=== PATIENT | male | born 2000 | race Two or more races ===

== ENCOUNTER 2020-04-18 14:38 | Outpatient (REF) | payer OTHER, SELFPAY ==
[2020-04-18 15:28] LABS: MANUAL DIFF FLAG NO
[2020-04-18 15:31] LABS: Basophils Percent Auto 0.5 % (0-2); Eosinophils Absolute Auto 0.1 X10*3/uL (0.0-0.4); Eosinophils Percent Auto 0.9 % (0-4); Hematocrit 46.3 % (42-52); Hemoglobin 15.1 g/dl (14.0-18.0); Imm Gran Abs Auto 0.01 X10*3/uL (0.00-0.03); Imm Gran Pct Auto 0.2 % (0.0-0.4); Lymphocytes Percent Auto 30.3 % (20-40); Mean Corpuscular HGB Conc 32.6 g/dl (31.0-36.0); Mean Corpuscular Hemoglobin 27.3 pg (27.0-33.0); Mean Corpuscular Volume 83.7 fL (80-98); Mean Platelet Volume 9.1 fL (9.4-12.4); Monocytes Absolute Auto 0.7 X10*3/uL (0.1-1.2); Monocytes Percent Auto 10.8 % (2-11); Neutrophils Absolute Auto 3.7 X10*3/uL (2.0-8.3); Neutrophils Percent Auto 57.3 % (45-73); Platelet Count 266 X10*3/uL (160-400); Red Blood Count 5.53 X10*6/uL (4.60-5.80); Red Cell Distribution Width 13.6 % (11.0-16.0); White Blood Count 6.5 X10*3/uL (4.8-10.8)
[2020-04-18 15:42] LABS: Glucose Urine UA NEG (NEG); Leukocyte Esterase Urine NEG (NEG); Nitrite Urine NEG (NEG); PH 5.5 (5.0-8.0); Specific Gravity - Urine >= 1.030 (1.005-1.025); Urine Blood NEG (NEG); Urine Ketones NEG (NEG); Urine Protein NEG (NEG-TRACE)
[2020-04-18 15:45] LABS: Appearance Urine HAZY; Color Urine YELLOW
[2020-04-18 15:50] LABS: Bacteria Urine TRACE /LPF; Mucus Urine 2+ /LPF; RBC Urine 0 /HPF (0); WBC Urine 0 /HPF (0-4)
[2020-04-18 16:01] LABS: Alanine Aminotransferase 68 U/L (0-40); Albumin Level 4.9 g/dL (3.5-5.0); Alkaline Phosphatase 76 U/L (39-117); Anion Gap 12 (12-20); Aspartate Amino Transferase 33 U/L (5-37); Bilirubin Total 0.5 mg/dL (0.0-1.0); Blood Urea Nitrogen 9 mg/dL (9-16); Calcium 9.5 mg/dL (8.4-10.2); Carbon Dioxide 27 mmol/L (22-29); Chloride 106 mmol/L (96-108); Cholesterol 162 mg/dL; Estimated Glomerular Filt Rate > 60; Glucose Random 80 mg/dL (60-115); HDL Cholesterol 46 mg/dL; LDL Cholesterol Calculated 101 mg/dl; Potassium 4.4 mmol/L (3.3-5.1); Sodium 141 mmol/L (135-145); Total Protein 7.7 g/dL (6.5-8.0); Triglycerides 76 mg/dL
[2020-04-18 16:22] LABS: Free T4 (Free Thyroxine) 0.86 ng/dL (0.71-1.85); Thyroid Stimulating Hormone 1.33 uIU/mL (0.32-4.0)
[2020-04-18 16:34] LABS: Folate 12.1 ng/mL (> or = 4.0); Vitamin B12 301 pg/mL (200-900)
== END 2020-04-18 14:39 | disposition home or self-care (01) ==
LOC: HO.LAB 14:38
PROVIDERS: PCP Internal Medicine; Visit Provider Internal Medicine
DX: K21.9 Gastro-esophageal reflux disease without esophagitis (principal); R35.0 Frequency of micturition; R13.10 Dysphagia, unspecified; E78.00 Pure hypercholesterolemia, unspecified
CPT/HCPCS: 36415; 80053; 80061; 81001; 82607; 82746; 84439; 84443; 85025

== ENCOUNTER 2020-05-06 09:15 | Outpatient (REF) | payer OTHER, SELFPAY ==
--- NOTE | ~2020-05-06 | US_ITS ---
EXAMINATION: US ABDOMEN LIMITED CLINICAL INFORMATION: Abnormal results of liver function studies. COMPARISON: None TECHNIQUE: Real-time imaging of the right upper quadrant abdominal viscera. FINDINGS: PANCREAS: Not well visualized due to bowel gas LIVER: Normal. The liver is normal in size. The liver contour is normal. Parenchymal echogenicity is normal. No focal hepatic lesion. There is no intrahepatic biliary duct dilatation seen. GALLBLADDER: Normal. The gallbladder is physiologically distended without evidence of stones, sludge, polyps, wall thickening or pericholecystic fluid. COMMON BILE DUCT: Normal in caliber measuring 0.3 cm in diameter. RIGHT KIDNEY: Normal. No hydronephrosis. No renal calculi or focal parenchymal lesions. The kidney measures 10.2 cm in maximum dimension. FREE FLUID: None. US/US abdomen limited IMPRESSION: Nonvisualization of the pancreas otherwise unremarkable right upper quadrant ultrasound.
[2020-05-06 10:44] LABS: Alanine Aminotransferase 34 U/L (0-40); Albumin Level 4.6 g/dL (3.5-5.0); Alkaline Phosphatase 65 U/L (39-117); Aspartate Amino Transferase 25 U/L (5-37); Bilirubin Direct 0.3 mg/dL (0.0-0.5); Bilirubin Total 0.9 mg/dL (0.0-1.0); Total Protein 7.2 g/dL (6.5-8.0)
[2020-05-07 08:20] LABS: HBc Num1 0.07 S/CO (0.00-0.79); Hepatitis B Core Antibody Nonreactive (Nonreactive)
[2020-05-07 08:39] LABS: Hepatitis B Surface Antigen Negative (Negative); ~HepC Num1 0.06 S/CO (0.00-0.79); ~Hepatitis C Antibody Nonreactive (Nonreactive)
[2020-05-07 09:30] LABS: HBS Num1 0.69 mIU/mL (0-7.99); HBsAGNum1 0.21 S/CO (0.00-0.99); ~Hepatitis B Surface Antibody NONREACTIVE (Nonreactive)
== END 2020-05-06 09:16 | disposition home or self-care (01) ==
LOC: HO.US 09:15
PROVIDERS: PCP Internal Medicine; Visit Provider Internal Medicine
DX: R94.5 Abnormal results of liver function studies (principal)
CPT/HCPCS: 36415; 76705; 80076; 86704; 86706; 86803; 87340

== ENCOUNTER 2020-06-30 09:43 | Outpatient (REF) | payer OTHER, SELFPAY ==
--- NOTE | ~2020-06-30 | FL_ITS ---
EXAMINATION: FL UPPER GI AIR-CONTRAST WITH BARIUM SWALLOW CLINICAL INFORMATION: Gastroesophageal reflux disease without esophagitis. COMPARISON: None TECHNIQUE: Routine upper GI air-contrast study was performed upright and lying position. In addition barium swallow with thick barium was performed in upright view. FINDINGS: Following oral administration of thick and thin barium in upright view, there is normal propagation of bolus from the oral cavity through the pharynx, esophagus into stomach without any evidence of obstruction, narrowing or stricture. The course, caliber and peristalsis of the esophagus are normal. On placing patient supine and prone lying, there is normal course, caliber and peristalsis of the stomach, duodenal bulb and sweep. The mucosal pattern of the stomach and the duodenum is normal. There is moderate gastroesophageal reflux without hiatal hernia. The soft tissues are normal. FL/FL upper GI w air w Ba Swallow IMPRESSION: Moderate gastroesophageal reflux without hiatal hernia. The rest of upper GI exam is unremarkable.
== END 2020-06-30 09:44 | disposition home or self-care (01) ==
LOC: HO.XRAY 09:43
PROVIDERS: PCP Internal Medicine; Visit Provider Internal Medicine
DX: R13.10 Dysphagia, unspecified (principal); K21.9 Gastro-esophageal reflux disease without esophagitis
CPT/HCPCS: 74246

== ENCOUNTER 2020-07-08 15:34 | Outpatient (REF) | payer OTHER, SELFPAY ==
--- NOTE | ~2020-07-08 | US_ITS ---
EXAMINATION: US PELVIS LIMITED (BLADDER) CLINICAL INFORMATION: Frequency of micturition. COMPARISON: Ultrasound abdomen limited dated 05/06/2020. TECHNIQUE: Real-time imaging of the bladder. FINDINGS: BLADDER: Well distended and normal. Bilateral ureteral jets are demonstrated. Prevoid bladder volume is 354 mL. Postvoid bladder volume is 36 mL. The prostate gland does not appear enlarged. Prostate volume is 6.6 mL. US/US bladder IMPRESSION: Normal bladder ultrasound.
== END 2020-07-08 15:35 | disposition home or self-care (01) ==
LOC: HO.US 15:34
PROVIDERS: PCP Internal Medicine; Visit Provider Internal Medicine
DX: R35.0 Frequency of micturition (principal)
CPT/HCPCS: 76857

== ENCOUNTER 2022-04-06 11:29 | Outpatient (REF) | payer OTHER, SELFPAY ==
[2022-04-06 11:48] LABS: MANUAL DIFF FLAG NO
[2022-04-06 12:38] LABS: Basophils Percent Auto 0.3 % (0-2); Eosinophils Percent Auto 0.4 % (0-4); Hematocrit 47.9 % (42.0-52.0); Hemoglobin 16.3 g/dl (14.0-18.0); Imm Gran Abs Auto 0.02 X10*3/uL (0.00-0.03); Imm Gran Pct Auto 0.3 % (0.0-0.4); Lymphocytes Absolute Auto 1.5 X10*3/uL (1.2-4.9); Lymphocytes Percent Auto 22.6 % (20-40); Mean Corpuscular Hemoglobin 27.5 pg (27.0-33.0); Mean Corpuscular Volume 80.9 fL (80.0-98.0); Mean Platelet Volume 9.5 fL (9.4-12.4); Monocytes Absolute Auto 0.8 X10*3/uL (0.1-1.2); Neutrophils Absolute Auto 4.4 x10*3/uL (2.0-8.3); Neutrophils Percent Auto 65.4 % (45-73); Platelet Count 264 X10*3/uL (160-400); Red Blood Count 5.92 X10*6/uL (4.60-5.80); Red Cell Distribution Width 12.6 % (11.0-16.0); White Blood Count 6.8 X10*3/uL (4.8-10.8)
[2022-04-06 12:43] LABS: Appearance Urine Clear; Color Urine Dark Yellow; Glucose Urine UA Negative (Negative); Leukocyte Esterase Urine Trace (Negative); Nitrite Urine Negative (Negative); Specific Gravity - Urine >= 1.030 (1.005-1.025); UMIC TRIGGER UA YES; Urine Blood Negative (Negative); Urine Ketones 80 mg/dL (Negative); Urine Protein 30 (1+) mg/dL (Neg-Trace)
[2022-04-06 12:46] LABS: Bacteria Urine None Seen (None Seen); RBC Urine 0-2 /HPF (0-2); Squamous Epithelial Cell Urine 0-2 /HPF (0-2); WBC Urine 0-5 /HPF (0-5)
[2022-04-06 13:34] LABS: Alanine Aminotransferase 32 U/L (0-40); Albumin Level 5.1 g/dL (3.5-5.0); Alkaline Phosphatase 69 U/L (39-117); Anion Gap 18 (12-20); Aspartate Amino Transferase 29 U/L (5-37); Bilirubin Total 0.9 mg/dL (0.0-1.0); Blood Urea Nitrogen 14 mg/dL (9-16); Carbon Dioxide 22 mmol/L (22-29); Chloride 103 mmol/L (96-108); Cholesterol 153 mg/dL; Estimated Glomerular Filt Rate > 60; Glucose Random 80 mg/dL (60-115); HDL Cholesterol 31 mg/dL; LDL Cholesterol Calculated 109 mg/dl; Potassium 4.2 mmol/L (3.3-5.1); Sodium 139 mmol/L (135-145); Total Protein 7.7 g/dL (6.5-8.0); Triglycerides 65 mg/dL
[2022-04-06 13:52] LABS: Erythrocyte Sedimentation Rate 2 MM/HR (0-15)
[2022-04-06 14:07] LABS: Folate 13.2 ng/mL (> or = 4.0); Free T4 (Free Thyroxine) 1.28 ng/dL (0.71-1.85); Thyroid Stimulating Hormone 0.74 uIU/mL (0.32-4.0); Vitamin B12 600 pg/mL (200-900)
== END 2022-04-06 11:30 | disposition home or self-care (01) ==
LOC: HO.LAB 11:29
PROVIDERS: PCP Internal Medicine; Visit Provider Internal Medicine
DX: E78.00 Pure hypercholesterolemia, unspecified (principal); R35.0 Frequency of micturition
CPT/HCPCS: 36415; 80053; 80061; 81001; 82607; 82746; 84439; 84443; 85025; 85652

== ENCOUNTER 2022-05-27 13:25 | Outpatient (REF) | payer OTHER, SELFPAY ==
[2022-05-27 14:13] LABS: Appearance Urine Clear; Color Urine Dark Yellow; Glucose Urine UA Negative (Negative); Leukocyte Esterase Urine Negative (Negative); Nitrite Urine Negative (Negative); Specific Gravity - Urine >= 1.030 (1.005-1.025); Urine Blood Negative (Negative); Urine Ketones 15 mg/dL (Negative); Urine Protein Trace mg/dL (Neg-Trace)
[2022-05-27 14:16] LABS: Bacteria Urine None Seen (None Seen); RBC Urine 0-2 /HPF (0-2); Squamous Epithelial Cell Urine 0-2 /HPF (0-2); WBC Urine 0-5 /HPF (0-5)
[2022-05-27 14:26] LABS: Anion Gap 13 (12-20); Blood Urea Nitrogen 11 mg/dL (9-16); Calcium 9.8 mg/dL (8.4-10.2); Carbon Dioxide 24 mmol/L (22-29); Chloride 108 mmol/L (96-108); Estimated Glomerular Filt Rate > 60; Glucose Random 87 mg/dL (60-115); Potassium 4.1 mmol/L (3.3-5.1); Sodium 141 mmol/L (135-145)
[2022-05-28 03:33] LABS: Syphilis Screen Nonreactive (Nonreactive)
[2022-05-28 04:10] LABS: HBc Num1 0.08 S/CO (0.00-0.79); HIV AB/AG Nonreactive (Nonreactive); HIV Num 1 0.07 S/CO (0.00-0.99); Hepatitis B Core Antibody Nonreactive (Nonreactive); Hepatitis B Surface Antigen Negative (Negative); ~HepC Num1 0.06 S/CO (0.00-0.79); ~Hepatitis B Surface Antibody NONREACTIVE (Nonreactive); ~Hepatitis C Antibody Nonreactive (Nonreactive)
== END 2022-05-27 13:26 | disposition home or self-care (01) ==
LOC: HO.LAB 13:25
PROVIDERS: PCP Internal Medicine; Visit Provider Internal Medicine
DX: Z11.4 Encounter for screening for human immunodeficiency virus [HIV] (principal); R79.89 Other specified abnormal findings of blood chemistry; R80.9 Proteinuria, unspecified; Z20.2 Contact with and (suspected) exposure to infections with a predominantly sexual mode of transmission
CPT/HCPCS: 36415; 80048; 81001; 86704; 86706; 86780; 86803; 87340; 87389

== ENCOUNTER 2022-08-13 13:00 | Outpatient (REF) | payer OTHER, SELFPAY ==
[2022-08-13 18:05] LABS: Urine Cytology See Pathology rpt
== END 2022-08-13 13:01 | disposition home or self-care (01) ==
LOC: HO.LNP 13:00
PROVIDERS: PCP Internal Medicine; Visit Provider Nurse Practitioner Family
DX: R35.0 Frequency of micturition (principal); R31.0 Gross hematuria; N39.43 Post-void dribbling; R35.1 Nocturia; R39.14 Feeling of incomplete bladder emptying; R39.15 Urgency of urination; Z79.899 Other long term (current) drug therapy
CPT/HCPCS: 51798; 88112; 99202

== ENCOUNTER 2022-09-14 12:14 | Outpatient (REF) | payer OTHER, SELFPAY ==
[2022-09-14 19:13] LABS: Blood Urea Nitrogen 14 mg/dL (9-16); Estimated Glomerular Filt Rate > 60
== END 2022-09-14 12:15 | disposition home or self-care (01) ==
LOC: HO.LAB 12:14
PROVIDERS: PCP Internal Medicine; Visit Provider Nurse Practitioner Family
DX: R39.15 Urgency of urination (principal)
CPT/HCPCS: 36415; 82565; 84520

== ENCOUNTER 2022-10-12 15:32 | Outpatient (REF) | payer OTHER, SELFPAY ==
--- NOTE | ~2022-10-12 | CT_ITS ---
EXAMINATION: CT ABDOMEN AND PELVIS WITHOUT AND WITH CONTRAST CLINICAL INFORMATION: Gross hematuria COMPARISON: Bladder ultrasound of 07/08/2020 and abdominal ultrasound of 05/06/2020 TECHNIQUE: Noncontrast CT of the abdomen and pelvis is performed followed by split bolus contrast-enhanced images using 85 mL Omnipaque 350 contrast.? Postcontrast imaging is performed during the combined nephrogram and excretion phase. Sagittal and coronal reformatted images were obtained on the technologist's workstation for both the precontrast and postcontrast phases. This CT examination was performed using dose optimization techniques as appropriate, variously including the following: *Automated exposure control *Adjustment of mA and/or kV according to patient size (this includes techniques or standardized protocols for targeted exams where dose is matched to indication/reason for exam; i.e. extremities or head) *Use of iterative reconstruction technique DLP: 862.00 mGy-cm FINDINGS: Ring Sorter demonstrates thoracolumbar scoliosis. LUNG BASES: The visualized lung bases are unremarkable. LIVER, GALLBLADDER, AND BILIARY TREE: The liver is normal in size, shape, and attenuation. No focal hepatic lesion or biliary ductal dilatation is present. The gallbladder is unremarkable with no evidence of radiopaque gallstones, gallbladder wall thickening, or obvious pericholecystic inflammatory changes. PANCREAS: Unremarkable. SPLEEN: Unremarkable. ADRENAL GLANDS: Unremarkable. KIDNEYS AND URETERS: The kidneys are normal in size, shape, and attenuation. No hydronephrosis, hydroureter, or calculi seen. No perinephric stranding. No enhancing renal mass or filling defect. BLADDER: Unremarkable. GASTROINTESTINAL TRACT: The small and large bowel are unremarkable. The appendix is unremarkable. ABDOMINAL WALL: No significant hernia is appreciated. LYMPH NODES: Normal. VASCULAR: Unremarkable. PELVIC VISCERA: Unremarkable. OSSEUS STRUCTURES: Thoracolumbar scoliosis. CT/CT urogram IMPRESSION: Unremarkable CT urogram of the abdomen and pelvis. In particular, no renal, ureteral or bladder calculi, filling defects, enhancing masses.
[2022-10-12] MEDS: iohexoL 350 MG/ML 100 ML INFUS..BTL 85 ML IV (16:14)
== END 2022-10-12 15:33 | disposition home or self-care (01) ==
LOC: HO.CT 15:32
PROVIDERS: PCP Internal Medicine; Visit Provider Nurse Practitioner Family
DX: R31.0 Gross hematuria (principal)
CPT/HCPCS: 74178; Q9967

== ENCOUNTER 2023-03-16 14:22 | Outpatient (AMB) | payer OTHER, SELFPAY ==
--- NOTE | 2023-03-16 14:22 | MHC.PC.OV ---
Intake Visit Reasons: Follow up/[phone] Allergies No Known Allergies Allergy (Verified 03/16/23 14:22) Medication List - Last Reconciled 03/16/23 by Macey Almonte MD tamsulosin 0.4 mg PO BEDTIME 30 days trazodone 50 mg PO BEDTIME PRN Tobacco use date assessed: 03/16/23 Dental Screening Dental Screen Date: 03/16/23 Did you have a dental visit in the last 12 months?: Yes Did you have a dental problem in the last 6 months where you did not have access to dental care?: No Was dental information given to patient?: Patient has dentist HPI Follow up/[phone] HPI Details 23-year-old overweight male with a history of asthma ADHD frequency coming in for follow-up through Telehealth. Last seen in May 2022. With the hematuria patient was seen by Urology started with Flomax and had a CT scan of the abdomen with and without contrast done showing unremarkable with no filling defects or enhancing masses. Patient is here for follow-up through Telehealth. concern on hypoglycemia. patient is worried about HIV also. concern on jock itch had the powder asking for the cream [facility] Medical History (Updated 03/16/23 @ 15:05 by Macey Almonte MD) Frequency of micturition Obesity (BMI 30-39.9) ADHD Insomnia Asthma Surgical History No pertinent past surgical history Family History Father No problems noted. Mother No problems noted. Brother In good health Sister In good health Social History Housing: Other Alcohol intake: never Patient Tobacco Use Status: Never used Tobacco e-Cigarette/Vaping Use: Never Used Second Hand Smoke Exposure: No service: No Current occupational status: unemployed Cognitive needs: No Hearing needs: No Vision needs: Yes Questionnaire PHQ-9 Over the last 2 weeks, how often have you been bothered by any of the following problems? 1. Little interest or pleasure in doing things: not at all 2. Feeling down, depressed, or hopeless: not at all 3. Trouble falling or staying asleep, or sleeping too much: not at all 4. Feeling tired or having little energy: not at all 5. Poor appetite or overeating: not at all 6. Feeling bad about yourself - or that you are a failure or have let yourself or your family down: not at all 7. Trouble concentrating on things, such as reading the newspaper or watching television: not at all 8. Moving or speaking so slowly that other people could have noticed. Or the opposite - being so fidgety or restless that you have been moving around a lot more than usual: not at all 9. Thoughts that you would be better off or of hurting yourself in some way: not at all Total score: 0 Depression Screening Interpretation: Negative Depression Screening Done: Yes Source: Developed by Drs. Sunny Abbott, Keshia Arango, Ottoniel Duran and colleagues, with an educational jasmina from [employer]. Thrive Questionnaire Date Thrive assessed: 03/16/23 I am a: Patient What is your living situation today?: I have a steady place to live Within the past 12 months, did the food you bought not last and you didn't have the money to get more?: Never true Within the past 12 months, did you worry whether your food would run out before you got money to buy more?: Never true Do you have trouble paying for medicines?: No Do you have trouble getting transportation to medical appointments?: No Do you have trouble paying your heating and electricity bill?: No Do you have trouble taking care of your child, family member or friend?: No Do you have trouble with day-to-day activities such as bathing, preparing meals, shopping, managing finances, etc.?: No Are you currently unemployed and looking for a job?: No Are you interested in more education?: No Currently or been in a relationship where the following occur: no concerns reported THRIVE Score: 0 AUDIT C Alcohol Use Questionnaire (AUDIT-C) 1. How often do you have a drink containing alcohol?: Never 3. How often do you have six or more drinks on one occasion?: Never Total Score: 0 TONIO-7 AMB Questionnaire TONIO-7 Date TONIO - 7 assessed: 03/16/23 Feeling nervous, anxious, or on edge: 0 = Not at all Not being able to stop or control worryin = Not at all Worrying too much about different things: 0 = Not at all Trouble relaxin = Not at all Being so restless that it is hard to sit still: 0 = Not at all Becoming easily annoyed or irritable: 0 = Not at all Feeling afraid as if something awful might happen: 0 = Not at all Total TONIO-7 score (0-4 normal; 5-9 mild; 10-14 moderate; 15-21 severe): 0 Source: Developed by Drs. Sunny Abbott, Keshia Arango, Ottoniel Duran and colleagues, with an educational jasmina from [employer]. Physical exam (Primary Care) Tobacco/Smoking Status: Tobacco use Status Tobacco use date assessed 03/16/23 03/16/23 14:25 Patient Tobacco Use Status Never used Tobacco 03/16/23 14:25 e-Cigarette/Vaping Use Never Used 03/16/23 14:25 PHQ-9: PHQ-9 Score PHQ-9: Total score 0 03/16/23 14:25 Depression Screening Interpretation: Negative Thrive Assessment: Date of Thrive Assessment Date Thrive assessed 03/16/23 03/16/23 14:25 Currently or been in a relationship where the following occur: no concerns reported Telehealth Telehealth Location of provider rendering services: practice address Location of patient: address on file Patient Identification confirmed using: Name, : Yes Telehealth method: video (Iphone) Patient verbally consented to treatment: Yes Patient verbally consented to billing insurance company: Yes Patient informed of any privacy concerns related to visit: Yes Minutes spent on Phone/Video with Pt.: 25 Assessment and Plan Assessment & Plan (1) Hematuria, gross: Code(s): R31.0 - Gross hematuria Plan: Workup done by Urology and continue to follow-up with urology. Started on tamsulosin. presently not on any med and will ff up with urology (2) Overweight (BMI 25.0-29.9): Code(s): E66.3 - Overweight Plan: Diet and exercise (3) GERD (gastroesophageal reflux disease): Comment: GI series 06/2020 Code(s): K21.9 - Gastro-esophageal reflux disease without esophagitis Qualifiers: Esophagitis presence: without esophagitis Qualified Code(s): K21.9 - Gastro-esophageal reflux disease without esophagitis Plan: Avoid the foods that causes that usually spicy foods, tomato products, juices, coffee, soda and foods that your sensitive to. After eating do not lie down, allow 3-4 hours before in lie down. And keep the head of bed above 30 degrees to avoid the acid from going up. (4) Asthma: Code(s): J45.909 - Unspecified asthma, uncomplicated Plan: Stable (5) Insomnia: Code(s): G47.00 - Insomnia, unspecified Plan: Trazodone prescription sent. (6) Hypoglycemia: Code(s): E16.2 - Hypoglycemia, unspecified Plan: Discussed about eating better and avoiding fasting Orders: Orders Free T4 (Free Thyroxine) Today K21.9 - Gastro-esophageal reflux disease without esophagitis Thyroid Stimulating Hormone Today K21.9 - Gastro-esophageal reflux disease without esophagitis Hemoglobin A1c Today K21.9 - Gastro-esophageal reflux disease without esophagitis HIV Ab/Ag Today Z20.2 - Contact with and (suspected) exposure to infections with a predominantly sexual mode of transmission Complete Blood Count Auto Diff Today K21.9 - Gastro-esophageal reflux disease without esophagitis Comprehensive Met. Panel Today K21.9 - Gastro-esophageal reflux disease without esophagitis Vitamin B12 and Folate Today K21.9 - Gastro-esophageal reflux disease without esophagitis Lipid Panel Today E78.00 - Pure hypercholesterolemia, unspecified, K21.9 - Gastro-esophageal reflux disease without esophagitis Medications: New clotrimazole 1% 1 appl topical BID 4 weeks 45 grams 0RF B35.6 - Tinea cruris trazodone 50 mg PO BEDTIME PRN 30 tabs 2RF sleep G47.00 - Insomnia, unspecified Discontinued zolpidem Discontinued Reason: Patient Completed Course 5 mg PO BEDTIME PRN 14 tabs 0RF sleep tamsulosin Discontinued Reason: Patient Completed Course 0.4 mg PO BEDTIME 30 days 30 caps 1RF N40.1 - Benign prostatic hyperplasia with lower urinary tract symptoms, R35.1 - Nocturia Coding Level of Care Code Est Pt Level 4 (12267) Diagnoses Hematuria, gross R31.0 Overweight (BMI 25.0-29.9) E66.3 Gastroesophageal reflux disease without esophagitis K21.9 Esophagitis presence: without esophagitis Asthma J45.909 Insomnia G47.00 Hypoglycemia E16.2
== END 2023-03-16 15:14 | disposition home or self-care (01) ==
LOC: HO.HMGH 14:22
PROVIDERS: PCP Internal Medicine; Visit Provider Internal Medicine
DX: R31.0 Gross hematuria (principal); E66.3 Overweight; K21.9 Gastro-esophageal reflux disease without esophagitis; J45.909 Unspecified asthma, uncomplicated; G47.00 Insomnia, unspecified; E16.2 Hypoglycemia, unspecified
CPT/HCPCS: 99214

== ENCOUNTER 2023-03-18 14:11 | Outpatient (AMB) | payer OTHER, SELFPAY ==
--- NOTE | 2023-03-18 14:30 | A.OFFVIS_ITS ---
Intake Intake Visit Reasons: cysto/CT/labs (set) Intake Note: Patient presents today for a CYSTOSCOPY Procedure: Meds: None Allergies to Antibiotic: No Known Allergies Blood Thinner: None Urinalysis test cleared for Cysto Disposable Uro-G Cystoscope Cannula: Lot: [id number] Exp: 06/30/2024 Radio Director Required: No Accompanied by: Self / Same As Patient Allergies No Known Allergies Allergy (Verified 03/18/23 14:31) HPI HPI Comments History of Present Illness Details Dylon is a very pleasant 23-year-old male patient of Dr. Almonte. He has a past medical history of ADHD, asthma, insomnia, and obesity. He was evaluated by DAVID Bailey with complaints urinary dribbling and having had 2 episodes of gross hematuria. He denies smoking cigarettes however reports to smoking recreational marijuana. He denies any known chemical exposure. He reports nocturia 3-4 times per night. He does however endorse to be drinking fluids prior to bed. He otherwise denies incontinence, dysuria, foul-smelling urine, flank pain, fever, and or chills. He does report to being sexually active last about 3-4 months ago with a same sex partner. He has undergone STD workup which have come back negative/WNL. He presents to the office today for office cystoscopy 03/18/23--Cystoscopy findings: prostatic urethra non obstructive, bulbous urethra WNL, no suspicious bladder lesions visualized UA - blood - negative I have discussed CT Urogram results 09/2022- urinary tract WNL Plan - Currently symptoms are resolved. Hematuria w/u negative for abnormality at this time. Follow up prn [facility] Medical History Frequency of micturition Obesity (BMI 30-39.9) ADHD Insomnia Asthma Surgical History No pertinent past surgical history Family History Father No problems noted. Mother No problems noted. Brother In good health Sister In good health Social History Housing: Other Alcohol intake: never Patient Tobacco Use Status: Never used Tobacco e-Cigarette/Vaping Use: Never Used Second Hand Smoke Exposure: No service: No Current occupational status: unemployed Cognitive needs: No Hearing needs: No Vision needs: Yes Review of Systems Const All systems reviewed & are unremarkable except as noted in HPI and below Reports no additional complaints Eyes Reports no additional complaints ENT Reports no additional complaints Card Denies dyspnea Resp Denies cough and Denies dyspnea GI Reports no additional complaints Musc Reports no additional complaints Skin/Breast Denies rash and Denies unusual bruising Neuro Reports no additional complaints Psych Reports no additional complaints Endo Reports no additional complaints David/Lymph Reports no additional complaints Aller/Immun Reports no additional complaints Office Procedures Cystoscopy Consent Discussed risk and benefit or proposed procedure with the patient. Information consent for procedure given to the patient. Discussed technical aspects, risks, benefits and alternatives in full. Addressed all of the patient's questions and concerns regarding the procedure. The patient demonstrated knowledge and understanding. They wish to proceed with this procedure. Preparation The patient was prepped in the usual manner. A rig builder was present and in the room. Genitalia was prepped with betadine solution in a sterile manner. Lidocaine Jelly 2% was placed into the urethra and 16Fr flexible Olympus cystoscope was inserted into the meatus after adequate lubrication. Procedure Time out per protocol performed. Bladder Inspection Bladder Inspection: The bladder was inspected in its entirety with utilization retroflexion d isplaying: Tumor(s): none visualized Trabeculation: N/A Mucosal Erthema: N/A Orifices: normal shape and position Urethra: normal Cystoscopy findings: prostatic urethra non obstructive, bulbous urethra WNL, no suspicious bladder lesions visualized [id number] DISPOSABLE SCOPE URO-G FLEXIBLE SCOPE Procedure code (CPT) selection complete Office Meds lidocaine HCl 2 % mucosal jelly in applicator Performing Provider: Rachael Merchant MD [facility] [place] Administered by: Irma Burgos RN on 03/18/23 14:57 Dose Route Admin Location Dispensed Lot Number Expiration Date NDC Sleeping Car Conductor 10 mL intra-urethral 20 mL naproxen 500 mg tablet Performing Provider: Rachael Merchant MD Performing Location: [facility] [place] [facility] Administered by: Irma Burgos RN on 03/18/23 14:57 Dose Route Admin Location Dispensed Lot Number Expiration Date NDC Sleeping Car Conductor 500 mg PO 1 tab ciprofloxacin HCl 500 mg tablet Performing Provider: Rachael Merchant MD Performing Location: [facility] [place] [facility] Administered by: Irma Burgos RN on 03/18/23 14:57 Dose Route Admin Location Dispensed Lot Number Expiration Date NDC Sleeping Car Conductor 500 mg PO 1 tab Results AMB Urinalysis, Automated UA Leukoctes 15 Sue/uL Last Edit by ISHAN Anton on 03/18/23 14:58 UA Nitrite Negative Last Edit by ISHAN Anton on 03/18/23 14:58 UA Urobilinogen 0.2 mg/dL Last Edit by ISHAN Anton on 03/18/23 14:5 8 UA Protein 15 mg/dL Last Edit by ISHAN Anton on 03/18/23 14:58 1+ Megan Aguilar 03/18/23 14:58 UA pH 6.0 Last Edit by ISHAN Anton on 03/18/23 14:58 UA Blood 0 Osorio/uL Last Edit by ISHAN Anton on 03/18/23 14:58 UA Specific [place] 1.025 Last Edit by ISHAN Anton on 03/18/23 14: 58 UA Ketone Negative Last Edit by ISHAN Anton on 03/18/23 14:58 UA Bilirubin 15 mg/dL Last Edit by ISHAN Anton on 03/18/23 14:58 1+ Megan Aguilar 03/18/23 14:58 UA Glucose 0 mg/dL Last Edit by ISHAN Anton on 03/18/23 14:58 Results Reviewed Results Reviewed: Laboratory Last Values Urine pH (Auto) 6.0 03/18/23 14:55 Specific [place] (Auto) 1.025 03/18/23 14:55 Urine Protein (Auto) 15 mg/dL 03/18/23 14:55 Glucose (UA)(Auto) 0 mg/dL 03/18/23 14:55 Urine Ketones (Auto) Negative 03/18/23 14:55 Urine Blood (Auto) 0 Osorio/uL 03/18/23 14:55 Urine Nitrite (Auto) Negative 03/18/23 14:55 Urine Bilirubin (Auto) 15 mg/dL 03/18/23 14:55 Urine Urobilinogen (Auto) 0.2 mg/dL 03/18/23 14:55 Leukocyte Esterase (Auto) 15 Sue/uL 03/18/23 14:55 Assessment & Plan Assessment & Plan (1) Hematuria, gross: Code(s): R31.0 - Gross hematuria (2) Frequency of micturition: Code(s): R35.0 - Frequency of micturition (3) Urinary dribbling: Code(s): N39.43 - Post-void dribbling Plan Hematuria w/u negative for abnormality at this time. Follow up prn Orders: Orders AMB Cystoscopy 03/18/23 R31.0 - Gross hematuria, R35.0 - Frequency of micturition AMB Urinalysis Automated 03/18/23 Z13.9 - Encounter for screening, unspecified Patient Instructions: The patient had an opportunity to ask questions regarding treatment plan. All questions were answered. Imaging, Laboratory studies and physical exam results were discussed and reviewed in detail. No major barriers to understanding were identified. The patient expressed understanding and agreement with the above treatment plan. The patient is aware they should contact our office by phone for worsening of their current condition or the appearance of new symptoms. Compliance is encouraged with any medications and followup testing that is ordered. It is a privilege to be allowed the opportunity to participate in the urologic care of your patient. If you have any questions or concerns regarding treatment for the above conditions please do not hesitate to contact me. The office telephone contact is [phone]. This note is constructed in part using voice recognition software. While every effort has been made to ensure accuracy peer counselor errors may have been included. Yours sincerely, Rachael Merchant MD Coding Level of Care Code Procedure Only Diagnoses Hematuria, gross R31.0 Frequency of micturition R35.0 Urinary dribbling N39.43 CPT Codes Cystoscopy - CPT: 76990-[id number] ([id number])
== END 2023-03-18 15:40 | disposition home or self-care (01) ==
PROVIDERS: PCP Internal Medicine; Visit Provider Urology
DX: R31.0 Gross hematuria (principal); R35.0 Frequency of micturition; Z13.9 Encounter for screening, unspecified
CPT/HCPCS: 52000

== ENCOUNTER → 2023-03-18 14:11 | Outpatient (BNVA) | payer OTHER, SELFPAY | PROVIDERS: PCP Internal Medicine; Visit Provider Urology | DX: R31.0 Gross hematuria (principal); R35.0 Frequency of micturition; N39.43 Post-void dribbling | CPT/HCPCS: 52000; 81003 ==

== ENCOUNTER 2023-04-12 14:06 | Outpatient (REF) | payer OTHER, SELFPAY ==
[2023-04-12 14:18] LABS: MANUAL DIFF FLAG NO
[2023-04-12 14:33] LABS: Basophils Percent Auto 0.4 % (0-2); Eosinophils Absolute Auto 0.1 X10*3/uL (0.0-0.4); Eosinophils Percent Auto 1.1 % (0-4); Hematocrit 43.6 % (42.0-52.0); Hemoglobin 14.4 g/dl (14.0-18.0); Imm Gran Abs Auto 0.01 X10*3/uL (0.00-0.03); Imm Gran Pct Auto 0.2 % (0.0-0.4); Lymphocytes Absolute Auto 1.5 X10*3/uL (1.2-4.9); Lymphocytes Percent Auto 34.5 % (20-40); Mean Corpuscular Hemoglobin 27.3 pg (27.0-33.0); Mean Corpuscular Volume 82.6 fL (80.0-98.0); Mean Platelet Volume 8.9 fL (9.4-12.4); Monocytes Absolute Auto 0.5 X10*3/uL (0.1-1.2); Neutrophils Absolute Auto 2.4 x10*3/uL (2.0-8.3); Neutrophils Percent Auto 52.8 % (45-73); Platelet Count 250 X10*3/uL (160-400); Red Blood Count 5.28 X10*6/uL (4.60-5.80); Red Cell Distribution Width 13.6 % (11.0-16.0); White Blood Count 4.5 X10*3/uL (4.8-10.8)
[2023-04-12 14:37] LABS: Estimated Average Glucose 88 mg/dL; Hemoglobin A1c % 4.7 % (<6.0)
[2023-04-12 15:02] LABS: Alanine Aminotransferase 19 U/L (0-40); Albumin Level 4.7 g/dL (3.5-5.0); Alkaline Phosphatase 57 U/L (39-117); Anion Gap 11 (12-20); Aspartate Amino Transferase 17 U/L (5-37); Bilirubin Total 0.5 mg/dL (0.0-1.0); Blood Urea Nitrogen 10 mg/dL (9-16); Calcium 9.8 mg/dL (8.4-10.2); Carbon Dioxide 24 mmol/L (22-29); Chloride 107 mmol/L (96-108); Cholesterol 152 mg/dL (<200); Estimated Glomerular Filt Rate > 60; Glucose Random 80 mg/dL (60-115); HDL Cholesterol 44 mg/dL (>40); LDL Cholesterol Calculated 99 mg/dL (<100); Potassium 4.2 mmol/L (3.3-5.1); Sodium 138 mmol/L (135-145); Total Protein 7.6 g/dL (6.5-8.0); Triglycerides 47 mg/dL (<150)
[2023-04-12 15:21] LABS: Thyroid Stimulating Hormone 1.13 uIU/mL (0.32-4.0)
[2023-04-12 15:30] LABS: Vitamin B12 381 pg/mL (200-900)
[2023-04-13 02:37] LABS: HIV AB/AG Nonreactive (Nonreactive); HIV Num 1 0.05 S/CO (0.00-0.99)
== END 2023-04-12 14:07 | disposition home or self-care (01) ==
LOC: HO.LAB 14:06
PROVIDERS: PCP Internal Medicine; Visit Provider Internal Medicine
DX: K21.9 Gastro-esophageal reflux disease without esophagitis (principal); E78.00 Pure hypercholesterolemia, unspecified; Z20.2 Contact with and (suspected) exposure to infections with a predominantly sexual mode of transmission
CPT/HCPCS: 36415; 80053; 80061; 82607; 82746; 83036; 84439; 84443; 85025; 87389

== ENCOUNTER 2023-06-22 11:04 | Outpatient (AMB) | payer OTHER, SELFPAY ==
[2023-06-22 11:11] VITALS: BP 118/72; PULSE 66; O2SAT 98; BMI 27.5
--- NOTE | 2023-06-22 11:11 | MHC.PC.OV ---
Vital Signs 06/22/23 11:11 Height 5 ft 9 in Weight 186 lb BMI 27.5 BP 118/72 Blood Pressure Location Lt brachial Position Standing Pulse 66 Pulse Source Pulse Oximeter Pulse Oximetry (%) 98 Oxygen Delivery Method Room Air Intake Visit Reasons: Insomnia GERD Allergies No Known Allergies Allergy (Verified 06/22/23 11:11) Medication List - Last Reconciled 06/22/23 by Macey Almonte MD clotrimazole 1% 1 appl topical BID 4 weeks trazodone 50 mg PO BEDTIME PRN Tobacco use date assessed: 06/22/23 Dental Screening Dental Screen Date: 06/22/23 Did you have a dental visit in the last 12 months?: Yes Did you have a dental problem in the last 6 months where you did not have access to dental care?: No Was dental information given to patient?: Patient has dentist HPI Insomnia GERD HPI Details 23-year-old overweight male(loss of weight 12 lb) with GERD asthma insomnia last seen in February 2023. Patient had some hematuria and was sent to urology April 2023 cystoscopy workup negative for abnormality. working - April, , [facility] Medical History Frequency of micturition Obesity (BMI 30-39.9) ADHD Insomnia Asthma Surgical History No pertinent past surgical history Family History Father No problems noted. Mother No problems noted. Brother In good health Sister In good health Social History Housing: Other Alcohol intake: never Patient Tobacco Use Status: Never used Tobacco e-Cigarette/Vaping Use: Never Used Second Hand Smoke Exposure: No service: No Current occupational status: unemployed Cognitive needs: No Hearing needs: No Vision needs: Yes Questionnaire PHQ-9 Over the last 2 weeks, how often have you been bothered by any of the following problems? 1. Little interest or pleasure in doing things: not at all 2. Feeling down, depressed, or hopeless: not at all 3. Trouble falling or staying asleep, or sleeping too much: not at all 4. Feeling tired or having little energy: not at all 5. Poor appetite or overeating: not at all 6. Feeling bad about yourself - or that you are a failure or have let yourself or your family down: not at all 7. Trouble concentrating on things, such as reading the newspaper or watching television: not at all 8. Moving or speaking so slowly that other people could have noticed. Or the opposite - being so fidgety or restless that you have been moving around a lot more than usual: not at all 9. Thoughts that you would be better off or of hurting yourself in some way: not at all Total score: 0 Depression Screening Interpretation: Negative Depression Screening Done: Yes Source: Developed by Drs. Sunny Abbott, Keshia Arango, Ottoniel Duran and colleagues, with an educational jasmina from [employer]. Thrive Questionnaire Date Thrive assessed: 03/16/23 AUDIT C Alcohol Use Questionnaire (AUDIT-C) 1. How often do you have a drink containing alcohol?: Never 3. How often do you have six or more drinks on one occasion?: Never Total Score: 0 TONIO-7 AMB Questionnaire TONIO-7 Date TONIO - 7 assessed: 03/16/23 Source: Developed by Drs. Sunny Abbott, Keshia Arango, Ottoniel Duran and colleagues, with an educational jasmina from [employer]. Physical exam (Primary Care) Vital Signs: Last Vital Signs Pulse 66 06/22/23 11:11 BP 118/72 06/22/23 11:11 Pulse Ox 98 06/22/23 11:11 Oxygen Delivery Method Room Air 06/22/23 11:11 BMI result Body Mass Index 27.5 Tobacco/Smoking Status: Tobacco use Status Tobacco use date assessed 06/22/23 06/22/23 11:15 Patient Tobacco Use Status Never used Tobacco 06/22/23 11:15 e-Cigarette/Vaping Use Never Used 06/22/23 11:15 PHQ-9: PHQ-9 Score PHQ-9: Total score 0 06/22/23 11:15 Depression Screening Interpretation: Negative Thrive Assessment: Date of Thrive Assessment Date Thrive assessed 03/16/23 06/22/23 11:15 Const General: alert; No acute distress Eyes Conjunctivae: conjunctivae normal Resp Auscultation: clear to auscultation bilaterally Cardio Rate: regular rate Rhythm: regular rhythm GI Inspection: Yes normal to inspection Extrem General: Yes normal to inspection and No edema Assessment and Plan Assessment & Plan (1) Hematuria, gross: Comment: Workup negative March 2023 Dr. Coy Benton Code(s): R31.0 - Gross hematuria Plan: Patient had a complete workup with cystoscopy CT scan negative benign hematuria (2) Insomnia: Code(s): G47.00 - Insomnia, unspecified Plan: Patient has been placed on trazodone to help with sleep (3) Overweight (BMI 25.0-29.9): Code(s): E66.3 - Overweight Plan: Noted weight loss keep active eat healthy (4) GERD (gastroesophageal reflux disease): Comment: GI series 06/2020 Code(s): K21.9 - Gastro-esophageal reflux disease without esophagitis Qualifiers: Esophagitis presence: without esophagitis Qualified Code(s): K21.9 - Gastro-esophageal reflux disease without esophagitis Plan: Avoid the foods that causes that usually spicy foods, tomato products, juices, coffee, soda and foods that your sensitive to. After eating do not lie down, allow 3-4 hours before in lie down. And keep the head of bed above 30 degrees to avoid the acid from going up. (5) Benign positional vertigo: Code(s): H81.10 - Benign paroxysmal vertigo, unspecified ear Plan: keep well hydrated and call if worsening Medications: Refilled trazodone 50 mg PO BEDTIME PRN 90 tabs 1RF sleep G47.00 - Insomnia, unspecified Coding Level of Care Code Est Pt Level 4 (38294) Diagnoses Hematuria, gross R31.0 Insomnia G47.00 Overweight (BMI 25.0-29.9) E66.3 Gastroesophageal reflux disease without esophagitis K21.9 Esophagitis presence: without esophagitis Benign positional vertigo H81.10
== END 2023-06-22 13:57 | disposition home or self-care (01) ==
PROVIDERS: PCP Internal Medicine; Visit Provider Internal Medicine
DX: G47.00 Insomnia, unspecified (principal); R31.0 Gross hematuria; E66.3 Overweight; K21.9 Gastro-esophageal reflux disease without esophagitis; H81.10 Benign paroxysmal vertigo, unspecified ear
CPT/HCPCS: 99214

== ENCOUNTER 2023-11-23 13:14 | Outpatient (AMB) | payer OTHER, SELFPAY ==
--- NOTE | 2023-11-23 13:18 | MHC.PC.OV ---
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 nausea in am, gerd. [facility] Medical History Frequency of micturition Obesity (BMI 30-39.9) ADHD Insomnia Asthma Surgical History No pertinent past surgical history Family History Father No problems noted. Mother No problems noted. Brother In good health Sister In good health Social History Housing: Other Alcohol intake: never Patient Tobacco Use Status: Never used Tobacco e-Cigarette/Vaping Use: Never Used Second Hand Smoke Exposure: No service: No Current occupational status: unemployed Cognitive needs: No Hearing needs: No Vision needs: Yes Questionnaire PHQ-9 Over the last 2 weeks, how often have you been bothered by any of the following problems? 1. Little interest or pleasure in doing things: not at all 2. Feeling down, depressed, or hopeless: not at all 3. Trouble falling or staying asleep, or sleeping too much: not at all 4. Feeling tired or having little energy: not at all 5. Poor appetite or overeating: not at all 6. Feeling bad about yourself - or that you are a failure or have let yourself or your family down: not at all 7. Trouble concentrating on things, such as reading the newspaper or watching television: not at all 8. Moving or speaking so slowly that other people could have noticed. Or the opposite - being so fidgety or restless that you have been moving around a lot more than usual: not at all 9. Thoughts that you would be better off or of hurting yourself in some way: not at all Total score: 0 Depression Screening Interpretation: Negative Depression Screening Done: Yes Source: Developed by Drs. Sunny Abbott, Keshia Arango, Ottoniel Duran and colleagues, with an educational jasmina from [employer]. Thrive Questionnaire Date Thrive assessed: 11/23/23 I am a: Patient What is your living situation today?: I choose not to answer this question Within the past 12 months, did the food you bought not last and you didn't have the money to get more?: I choose not to answer this question Within the past 12 months, did you worry whether your food would run out before you got money to buy more?: I choose not to answer this question Do you have trouble paying for medicines?: I choose not to answer this question Do you have trouble getting transportation to medical appointments?: I choose not to answer this question Do you have trouble paying your heating and electricity bill?: I choose not to answer this question Do you have trouble taking care of your child, family member or friend?: I choose not to answer this question Do you have trouble with day-to-day activities such as bathing, preparing meals, shopping, managing finances, etc.?: I choose not to answer this question Are you currently unemployed and looking for a job?: I choose not to answer this question Are you interested in more education?: I choose not to answer this question Please select the resources that you would like help with: None Currently or been in a relationship where the following occur: I choose not to answer THRIVE Score: 0 AUDIT C Alcohol Use Questionnaire (AUDIT-C) 1. How often do you have a drink containing alcohol?: Never Total Score: 0 TONIO-7 AMB Questionnaire TONIO-7 Date TONIO - 7 assessed: 11/23/23 Feeling nervous, anxious, or on edge: 0 = Not at all Not being able to stop or control worryin = Not at all Worrying too much about different things: 0 = Not at all Trouble relaxin = Not at all Being so restless that it is hard to sit still: 0 = Not at all Becoming easily annoyed or irritable: 0 = Not at all Feeling afraid as if something awful might happen: 0 = Not at all Total TONIO-7 score (0-4 normal; 5-9 mild; 10-14 moderate; 15-21 severe): 0 Source: Developed by Drs. Sunny Abbott, Keshia Arango, Ottoniel Duran and colleagues, with an educational jasmina from [employer]. Review of Systems Const Denies poor appetite and Denies weakness Eyes Denies no additional complaints ENT Reports Normal hearing present, Denies dizziness, Denies nasal congestion, Denies tinnitus and Denies sore throat Card Denies chest pain, Denies syncope, Denies rapid heart rate and Denies dyspnea Resp Denies cough and Denies dyspnea GI Denies change in stool character, Reports constipation, Denies diarrhea, Denies nausea and Denies vomiting Denies dysuria and Denies urinary frequency Neuro Reports Normal hearing present, Denies confusion, Denies dizziness, Denies syncope and Denies weakness Psych Denies confusion Physical exam (Primary Care) BMI result Body Mass Index 24.1 Tobacco/Smoking Status: Tobacco use Status Tobacco use date assessed 06/22/23 11/23/23 13:21 Patient Tobacco Use Status Never used Tobacco 11/23/23 13:21 e-Cigarette/Vaping Use Never Used 11/23/23 13:21 PHQ-9: PHQ-9 Score PHQ-9: Total score 0 11/23/23 13:21 Depression Screening Interpretation: Negative Thrive Assessment: Date of Thrive Assessment Date Thrive assessed 11/23/23 11/23/23 13:21 Currently or been in a relationship where the following occur: I choose not to answer Const General: No confusion Orientation/consciousness: No confusion HENMT Head: Yes normocephalic Ears: external ears normal and TM's normal bilaterally Face and sinus: Yes normal facial exam Mouth: moist mucous membranes Throat: Yes tonsils normal Eyes Conjunctivae: conjunctivae normal Pupils: Equal, round and reactive pupils present and Pupil accommodation reflex normal Direct Ophthalmoscopy: normal light reflex Neck Neck: No lymphadenopathy Thyroid: Thyroid normal Chest Chest palpation & inspection: normal inspection of the chest Resp Effort & Inspection: normal respiratory effort and no audible wheezes Auscultation: clear to auscultation bilaterally, no crackles, no wheezes and lung sounds not diminished Cardio Rate: regular rate Rhythm: regular rhythm Peripheral pulses: radial pulses present and dorsalis pedis present GI Palpation (GI): no masses Auscultation: normal bowel sounds and normoactive bowel sounds Rectal Exam - Male: Yes deferred Skin General skin exam: no rashes or lesions noted Rashes: no rashes Neuro General: No confusion Cranial nerves: Yes Equal, round and reactive pupils present and Yes Normal hearing present Cognition (Neuro): normal cognition Gait exam (Neuro): Normal gait present Motor exam (neuro): 5/5 motor strength present throughout Deep tendon reflexes (DTR's): Right brachioradialis reflex intensity grade: 2+, Left brachioradialis reflex intensity grade: 2+, Right patellar reflex intensity grade: 2+ and Left patellar reflex intensity grade: 2+ Extrem General: No edema Office Procedures Flu Questionnaire Does the patient have a severe egg allergy?: No Immunizations Fluarix Triv [id number] (PF) 45 mcg (15 mcg x 3)/0.5 mL IM syringe Performing Provider: Macey Almonte MD [facility] Documented (not given) by: ISHAN Zavala on 11/23/23 13:24 Reason Not Given: Patient Refused Coding Level of Care Code Est Pt Prev Care 18-39y(42081) Diagnoses Annual physical exam Z00.00 ADHD F90.9 Gastroesophageal reflux disease without esophagitis K21.9 Esophagitis presence: without esophagitis Asthma J45.909 Constipation K59.00 Hematuria, gross R31.0 Assessment & Plan Assessment & Plan (1) Annual physical exam: Code(s): Z00.00 - Encounter for general adult medical examination without abnormal findings Category: Medical Plan: Patient is advised to eat healthy, keep well hydrated, keep active and have adequate sleep. (2) ADHD: Code(s): F90.9 - Attention-deficit hyperactivity disorder, unspecified type Category: Medical Plan: stable (3) GERD (gastroesophageal reflux disease): Comment: GI series 06/2020 Code(s): K21.9 - Gastro-esophageal reflux disease without esophagitis Category: Medical Qualifiers: Esophagitis presence: without esophagitis Qualified Code(s): K21.9 - Gastro-esophageal reflux disease without esophagitis Plan: Avoid the foods that causes that usually spicy foods, tomato products, juices, coffee, soda and foods that your sensitive to. After eating do not lie down, allow 3-4 hours before in lie down. And keep the head of bed above 30 degrees to avoid the acid from going up. (4) Asthma: Code(s): J45.909 - Unspecified asthma, uncomplicated Category: Medical Plan: Stable (5) Constipation: Code(s): K59.00 - Constipation, unspecified Category: Medical Plan: keep well hydrated, eat more fiber and exercise (6) Hematuria, gross: Comment: Workup negative March 2023 Dr. Coy Benton Code(s): R31.0 - Gross hematuria Category: Medical Plan: benign hematuria Orders: Orders Influenza [id number] Immunization Today Z23 - Encounter for immunization
[2023-11-23 13:19] VITALS: BP 126/80; PULSE 76; O2SAT 97; BMI 24.1
== END 2023-11-23 14:46 | disposition home or self-care (01) ==
PROVIDERS: PCP Internal Medicine; Visit Provider Internal Medicine
DX: Z00.00 Encounter for general adult medical examination without abnormal findings (principal); F90.9 Attention-deficit hyperactivity disorder, unspecified type; K21.9 Gastro-esophageal reflux disease without esophagitis; J45.909 Unspecified asthma, uncomplicated; K59.00 Constipation, unspecified; R31.0 Gross hematuria; Z23 Encounter for immunization

== ENCOUNTER → 2023-11-23 13:14 | Outpatient (BNVA) | payer OTHER, SELFPAY | PROVIDERS: PCP Internal Medicine; Visit Provider Internal Medicine | DX: Z00.01 Encounter for general adult medical examination with abnormal findings (principal); F90.9 Attention-deficit hyperactivity disorder, unspecified type; K21.9 Gastro-esophageal reflux disease without esophagitis; J45.909 Unspecified asthma, uncomplicated; K59.00 Constipation, unspecified; R31.0 Gross hematuria | CPT/HCPCS: 90471; 96127; 99395 ==

== ENCOUNTER 2024-05-07 15:39 | Outpatient (AMB) | payer OTHER, SELFPAY ==
--- NOTE | 2024-05-07 15:53 | MHC.PC.OV ---
Vital Signs 05/07/24 15:57 Height 5 ft 9 in Weight 145 lb BMI 21.4 BP 130/80 Blood Pressure Location Lt brachial Position Sitting Pulse 88 Pulse Source Pulse Oximeter Pulse Oximetry (%) 98 Oxygen Delivery Method Room Air Intake Visit Reasons: follow up Cyber Instructor Required: No Accompanied by: Self / Same As Patient Allergies No Known Allergies Allergy (Verified 05/07/24 15:55) Medication List - Last Reconciled 05/07/24 by Macey Almonte MD aluminum chloride 20% (Drysol) 1 appl topical 2XW PRN trazodone 50 mg PO BEDTIME PRN Tobacco use date assessed: 05/07/24 Dental Screening Dental Screen Date: 05/07/24 Did you have a dental visit in the last 12 months?: No Did you have a dental problem in the last 6 months where you did not have access to dental care?: No Was dental information given to patient?: Patient has dentist HPI follow up HPI Details mom is here, complains of a lot of gas [facility] Medical History Frequency of micturition Obesity (BMI 30-39.9) ADHD Insomnia Asthma Surgical History No pertinent past surgical history Family History Father No problems noted. Mother No problems noted. Brother In good health Sister In good health Social History Housing: Other Alcohol intake: never Patient Tobacco Use Status: Never used Tobacco e-Cigarette/Vaping Use: Never Used Second Hand Smoke Exposure: No service: No Current occupational status: unemployed Cognitive needs: No Hearing needs: No Vision needs: Yes Questionnaire PHQ-9 Over the last 2 weeks, how often have you been bothered by any of the following problems? 1. Little interest or pleasure in doing things: not at all 2. Feeling down, depressed, or hopeless: not at all 3. Trouble falling or staying asleep, or sleeping too much: not at all 4. Feeling tired or having little energy: not at all 5. Poor appetite or overeating: not at all 6. Feeling bad about yourself - or that you are a failure or have let yourself or your family down: not at all 7. Trouble concentrating on things, such as reading the newspaper or watching television: not at all 8. Moving or speaking so slowly that other people could have noticed. Or the opposite - being so fidgety or restless that you have been moving around a lot more than usual: not at all 9. Thoughts that you would be better off or of hurting yourself in some way: not at all Total score: 0 Depression Screening Interpretation: Negative Depression Screening Done: Yes Source: Developed by Drs. Sunny Abbott, Keshia Arango, Ottoniel Duran and colleagues, with an educational jasmina from [employer]. Thrive Questionnaire Date Thrive assessed: 05/07/24 I am a: Patient What is your living situation today?: I choose not to answer this question Within the past 12 months, did the food you bought not last and you didn't have the money to get more?: I choose not to answer this question Within the past 12 months, did you worry whether your food would run out before you got money to buy more?: I choose not to answer this question Do you have trouble paying for medicines?: I choose not to answer this question Do you have trouble getting transportation to medical appointments?: I choose not to answer this question Do you have trouble paying your heating and electricity bill?: I choose not to answer this question Do you have trouble taking care of your child, family member or friend?: I choose not to answer this question Do you have trouble with day-to-day activities such as bathing, preparing meals, shopping, managing finances, etc.?: I choose not to answer this question Are you currently unemployed and looking for a job?: I choose not to answer this question Are you interested in more education?: I choose not to answer this question Please select the resources that you would like help with: None Currently or been in a relationship where the following occur: I choose not to answer THRIVE Score: 0 AUDIT C Alcohol Use Questionnaire (AUDIT-C) 1. How often do you have a drink containing alcohol?: Never Total Score: 0 TONIO-7 AMB Questionnaire TONIO-7 Date TONIO - 7 assessed: 05/07/24 Feeling nervous, anxious, or on edge: 3 = Nearly every day Not being able to stop or control worryin = Not at all Worrying too much about different things: 3 = Nearly every day Trouble relaxin = Several days Being so restless that it is hard to sit still: 1 = Several days Becoming easily annoyed or irritable: 0 = Not at all Feeling afraid as if something awful might happen: 0 = Not at all Total TONIO-7 score (0-4 normal; 5-9 mild; 10-14 moderate; 15-21 severe): 8 Source: Developed by Drs. Sunny Abbott, Keshia Arango, Ottoniel Duran and colleagues, with an educational jasmina from [employer]. Physical exam (Primary Care) Vital Signs: Last Vital Signs Pulse 88 05/07/24 15:57 BP 130/80 05/07/24 15:57 Pulse Ox 98 05/07/24 15:57 Oxygen Delivery Method Room Air 05/07/24 15:57 BMI result Body Mass Index 21.4 Tobacco/Smoking Status: Tobacco use Status Tobacco use date assessed 05/07/24 05/07/24 16:01 Patient Tobacco Use Status Never used Tobacco 05/07/24 16:01 e-Cigarette/Vaping Use Never Used 05/07/24 16:01 PHQ-9: PHQ-9 Score PHQ-9: Total score 0 05/07/24 16:01 Depression Screening Interpretation: Negative Thrive Assessment: Date of Thrive Assessment Date Thrive assessed 05/07/24 05/07/24 16:01 Currently or been in a relationship where the following occur: I choose not to answer Const General: alert; No acute distress Eyes Conjunctivae: conjunctivae normal Resp Auscultation: clear to auscultation bilaterally Cardio Rate: regular rate Rhythm: regular rhythm GI Inspection: Yes normal to inspection Extrem General: Yes normal to inspection and No edema Coding Level of Care Code Est Pt Level 4 (83706) Diagnoses Generalized anxiety disorder F41.1 Gastroesophageal reflux disease without esophagitis K21.9 Esophagitis presence: without esophagitis Asthma J45.909 Abdominal bloating R14.0 Weight loss R63.4 Hyperhidrosis R61 Assessment & Plan Assessment & Plan (1) Generalized anxiety disorder: Code(s): F41.1 - Generalized anxiety disorder Category: Medical Plan: Stable (2) GERD (gastroesophageal reflux disease): Comment: GI series 06/2020 Code(s): K21.9 - Gastro-esophageal reflux disease without esophagitis Category: Medical Qualifiers: Esophagitis presence: without esophagitis Qualified Code(s): K21.9 - Gastro-esophageal reflux disease without esophagitis Plan: Avoid the foods that causes that usually spicy foods, tomato products, juices, coffee, soda and foods that your sensitive to. After eating do not lie down, allow 3-4 hours before in lie down. And keep the head of bed above 30 degrees to avoid the acid from going up. (3) Asthma: Code(s): J45.909 - Unspecified asthma, uncomplicated Category: Medical Plan: Stable (4) Abdominal bloating: Code(s): R14.0 - Abdominal distension (gaseous) Category: Medical (5) Weight loss: Code(s): R63.4 - Abnormal weight loss Category: Medical Plan: eating better now but will get gastro for the bloating (6) Hyperhidrosis: Code(s): R61 - Generalized hyperhidrosis Category: Medical Plan History of Present Illness The patient is a 24-year-old male presenting with intentional weight loss and associated gastrointestinal and dermatological symptoms. He engaged in a restrictive diet, leading to a significant reduction in food intake and subsequent problems, including abdominal discomfort, excess gas, and bowel irregularities. The dietary changes negatively impacted his gastrointestinal health, contributing to feelings of pressure and altered bowel movements. Additionally, the patient deals with excessive sweating and resultant dermatological issues (rashes and itchiness) in sweat-prone areas, exacerbated by anxiety. He continues to experience these symptoms despite using medicated powders and increasing dietary intake to alleviate gastrointestinal distress. His past medical history is significant for asthma, ADHD, GERD, and generalized anxiety disorder. Anxiety contributes notably to symptom exacerbation, particularly sweating. The patient anticipates returning to counseling to address anxiety. Health Maintenance - Last comprehensive bloodwork in March 2023 was unremarkable. - Discussion of dietary adjustments to include more balanced meals. - Plan to resume therapy for anxiety management. Social History - Significant weight loss due to intentional dietary restrictions. - Recent adjustment to include more substantial meals. - No current counseling, but planning to resume. - Hyperhidrosis affecting daily life and necessitating frequent clothing changes. Review of Systems - Gastrointestinal: Reports excessive flatulence, abdominal pressure, and bowel irregularities. - Dermatological: Reports rashes and itchiness. - Neurological/Psychological: Reports ongoing anxiety, planning to resume therapy. Physical Exam - Skin- Observed redness and rash in groin and underarm areas. Results - Labs: Last bloodwork in March 2023 with normal blood count, electrolytes, kidney function, blood sugar, and cholesterol. Plan The management plan involves dietary adjustments focusing on balanced meals and consideration of probiotics to support digestive health. An antifungal powder alongside Drisol has been advised for hyperhidrosis and associated dermatological concerns. The patient will be referred to gastroenterology for further evaluation of gastrointestinal symptoms. Resumption of therapy is encouraged to help manage anxiety, which exacerbates symptoms. Educational guidance on dietary changes is provided. Patient was informed and verbally consented to the use of an ambient scribe for clinic note documentation during this visit. Discussion Notes During the visit, I discussed the necessity of addressing the patient?s gastrointestinal symptoms through dietary modifications and the potential benefits of probiotics. We covered the use of Drisol and antifungal treatments for sweat-related dermatitis. A thorough explanation of gas-producing foods was provided to manage flatulence. Resuming therapy was suggested to aid anxiety management, which impacts sweating and digestion. Consent for a gastroenterology referral was obtained. Recommendations for follow-up and ongoing care were discussed. Patient Instructions - Begin dietary adjustments to include balanced meals. - Use the prescribed antifungal powder on affected areas. - Apply Drisol solution as directed for excessive sweating. - Continue to monitor symptoms and avoid identified gas-producing foods. - Follow through with the referral to gastroenterology. - Resume therapy for anxiety. - Maintain a symptom diary to share at follow-up appointments. Orders: Orders Complete Blood Count Auto Diff Today R61 - Generalized hyperhidrosis Free T4 (Free Thyroxine) Today R61 - Generalized hyperhidrosis Thyroid Stimulating Hormone Today R61 - Generalized hyperhidrosis Ferritin Today R61 - Generalized hyperhidrosis Lipid Panel Today E78.00 - Pure hypercholesterolemia, unspecified, R61 - Generalized hyperhidrosis Comprehensive Met. Panel Today R61 - Generalized hyperhidrosis Vitamin B12 and Folate Today R61 - Generalized hyperhidrosis UA w Microscopic Today R61 - Generalized hyperhidrosis Referrals Gastroenterology Referral R14.0 - Abdominal distension (gaseous) Medications: New aluminum chloride 20% (Drysol) 1 appl topical 2XW PRN 37.5 mL 0RF hyperhidrosis R61 - Generalized hyperhidrosis
[2024-05-07 15:57] VITALS: BP 130/80; PULSE 88; O2SAT 98; BMI 21.4
== END 2024-05-07 17:10 | disposition home or self-care (01) ==
LOC: HO.HMCH 15:40
PROVIDERS: PCP Internal Medicine; Visit Provider Internal Medicine
DX: F41.1 Generalized anxiety disorder (principal); K21.9 Gastro-esophageal reflux disease without esophagitis; J45.909 Unspecified asthma, uncomplicated; R14.0 Abdominal distension (gaseous); R63.4 Abnormal weight loss; R61 Generalized hyperhidrosis

== ENCOUNTER → 2024-05-07 15:39 | Outpatient (BNVA) | payer OTHER, SELFPAY | PROVIDERS: PCP Internal Medicine; Visit Provider Internal Medicine | DX: F41.1 Generalized anxiety disorder (principal); K21.9 Gastro-esophageal reflux disease without esophagitis; J45.909 Unspecified asthma, uncomplicated; R14.0 Abdominal distension (gaseous); R63.4 Abnormal weight loss; R61 Generalized hyperhidrosis | CPT/HCPCS: 99212 ==

== ENCOUNTER 2024-05-29 09:36 | Outpatient (REF) | payer OTHER, SELFPAY ==
--- NOTE | ~2024-05-29 | US_ITS ---
EXAMINATION: US RETROPERITONEUM HISTORY: N39.43 - Post-void dribbling TECHNIQUE: Real-time grayscale ultrasound imaging of the kidneys was performed and images were reviewed. COMPARISON: Comparison is made with the prior ultrasound examination the urinary bladder dated 07/03/[address] urogram dated 10/12/2022. FINDINGS: Right kidney: The right kidney measures 11.1 x 4.4 x 5.9 cm. Renal parenchymal echotexture and thickness are normal. There are no masses. There is no hydronephrosis or renal calculi. Left Kidney: The left kidney measures 11.4 x 6.5 x 5.1 cm. Renal parenchymal echotexture and thickness are normal. There are no masses. There is no hydronephrosis or renal calculi. The urinary bladder is unremarkable. Bilateral ureteral jets are identified. Before voiding, the urinary bladder measured 8.6 x 8.0 x 5.6 cm, for an estimated volume of 202 mL. After voiding, the urinary bladder measured 5.3 x 4.2 x 2.4 cm, for an estimated volume of 28 mL. The prostate is normal in size but demonstrates prominent calcifications. US/US retroperitoneal comp IMPRESSION: 1. The kidneys are unremarkable. 2. The urinary bladder is unremarkable. Post void bladder residual of 28 mL. 3. Prominent prostate calcifications. Electronically signed by: Sunny Hawk MD 05/29/2024 11:41 AM EDT
[2024-05-29 10:07] LABS: MANUAL DIFF FLAG NO
[2024-05-29 10:34] LABS: Appearance Urine Clear; Color Urine Yellow; Glucose Urine UA Negative (Negative); Leukocyte Esterase Urine Negative (Negative); Nitrite Urine Negative (Negative); PH 6.5 (5.0-9.0); Specific Gravity - Urine >= 1.030 (1.005-1.025); Urine Blood Negative (Negative); Urine Ketones Trace mg/dL (Negative); Urine Protein Negative (Neg-Trace)
[2024-05-29 10:34] LABS: Basophils Percent Auto 0.3 % (0-2); Eosinophils Percent Auto 1.1 % (0-4); Hematocrit 42.4 % (42.0-52.0); Hemoglobin 14.3 g/dl (14.0-18.0); Imm Gran Abs Auto 0.01 X10*3/uL (0.00-0.03); Imm Gran Pct Auto 0.3 % (0.0-0.4); Lymphocytes Absolute Auto 1.3 X10*3/uL (1.2-4.9); Mean Corpuscular HGB Conc 33.7 g/dl (31.0-36.0); Mean Corpuscular Hemoglobin 27.4 pg (27.0-33.0); Mean Corpuscular Volume 81.2 fL (80.0-98.0); Mean Platelet Volume 8.4 fL (9.4-12.4); Monocytes Absolute Auto 0.5 X10*3/uL (0.1-1.2); Monocytes Percent Auto 14.2 % (2-11); Neutrophils Absolute Auto 1.8 x10*3/uL (2.0-8.3); Neutrophils Percent Auto 49.1 % (45-73); Platelet Count 221 X10*3/uL (160-400); Red Blood Count 5.22 X10*6/uL (4.60-5.80); Red Cell Distribution Width 13.6 % (11.0-16.0); White Blood Count 3.7 X10*3/uL (4.8-10.8)
[2024-05-29 10:37] LABS: Bacteria Urine None Seen (None Seen); Hyaline Casts Urine 0-2 /LPF (0-2); RBC Urine 0-2 /HPF (0-2); Squamous Epithelial Cell Urine 0-2 /HPF (0-2); WBC Urine 0-5 /HPF (0-5)
[2024-05-29 11:39] LABS: Folate 12.1 ng/mL (> or = 4.0); Vitamin B12 357 pg/mL (200-900)
[2024-05-29 13:03] LABS: Alanine Aminotransferase 23 U/L (0-40); Albumin Level 4.6 g/dL (3.5-5.0); Alkaline Phosphatase 49 U/L (39-117); Anion Gap 9 (12-20); Aspartate Amino Transferase 23 U/L (5-37); Bilirubin Total 0.7 mg/dL (0.0-1.0); Blood Urea Nitrogen 16 mg/dL (9-16); Calcium 9.6 mg/dL (8.4-10.2); Carbon Dioxide 26 mmol/L (22-29); Chloride 108 mmol/L (96-108); Cholesterol 142 mg/dL (<200); Estimated Glomerular Filt Rate > 60; Glucose Random 80 mg/dL (60-115); HDL Cholesterol 59 mg/dL (>40); LDL Cholesterol Calculated 76 mg/dL (<100); Potassium 4.4 mmol/L (3.3-5.1); Sodium 139 mmol/L (135-145); Total Protein 7.1 g/dL (6.5-8.0); Triglycerides 35 mg/dL (<150)
[2024-05-29 13:19] LABS: Ferritin 179 ng/mL (20-250); Thyroid Stimulating Hormone 1.53 uIU/mL (0.32-4.0)
== END 2024-05-29 09:37 | disposition home or self-care (01) ==
LOC: HO.HMGCX 09:36
PROVIDERS: Absent Provider Internal Medicine; PCP Internal Medicine; Visit Provider Nurse Practitioner Family
DX: N39.43 Post-void dribbling (principal); R35.0 Frequency of micturition; R39.89 Other symptoms and signs involving the genitourinary system; R61 Generalized hyperhidrosis; E78.00 Pure hypercholesterolemia, unspecified
CPT/HCPCS: 36415; 76770; 80053; 80061; 81001; 82607; 82728; 82746; 84439; 84443; 85025; 87086

== ENCOUNTER → 2024-05-29 11:08 | Outpatient (BNV) | payer OTHER, SELFPAY | PROVIDERS: Absent Provider Internal Medicine; PCP Internal Medicine; Visit Provider Radiology Diagnostic Radiology | DX: N42.0 Calculus of prostate (principal); R39.14 Feeling of incomplete bladder emptying | CPT/HCPCS: 76770 ==

== ENCOUNTER 2024-06-05 09:49 | Outpatient (AMB) | payer OTHER, SELFPAY ==
--- NOTE | 2024-06-05 09:51 | MHC.OFFVIS ---
Intake Visit Reasons: follow up bladder pain Intake Note: Patient presents today for bladder pain, frequency, and incontinence Urology Medications: none Blood Thinner: none PVR: 66ml's Control Center Operator Required: No Accompanied by: Self / Same As Patient Allergies No Known Allergies Allergy (Verified 06/05/24 09:52) HPI Comments Details: Dylon is a very pleasant 24-year-old male patient of Dr. Almonte who was accompanied by his step mom Taylor at today's office visit He has a past medical history of ADHD, asthma, and insomnia. He presents to the office today for follow-up of his ongoing lower urinary tract symptoms. In discussion with the patient today he reports he continues with episodes of urinary urgency, urinary frequency, and urge incontinence. Of note, during last office visit 03/16 patient underwent an office cystoscopy with Dr. Coy Benton that noted Cystoscopy findings: prostatic urethra non obstructive, bulbous urethra WNL, no suspicious bladder lesions visualized. Recent retroperitoneal ultrasound results were reviewed with the patient and his step mom today 06/15 bilateral kidneys with no calculi, lesions, and or hydronephrosis. The urinary bladder is unremarkable. Postvoid bladder volume was approximately 30 mL. The prostate is normal in size but demonstrates prominent calcifications. Patient with a longstanding history of STD workup that has all been within normal limits. He reports he is not currently sexually active however describes an episode of 8-10 years ago when he was engaged with multi partner anal intercourse. He is currently undergoing psychological therapy for this ongoing issue he has been experiencing. We discussed at length potential causes of lower urinary tract symptoms patient is experiencing. LILIANA was performed left-side of the prostate was noted to be boggy suggesting possible inflammation. We discuss treatment of prostatitis. Unable to perform prostate massage in office today as patient was extremely tender upon exam. He otherwise denies hematuria, dysuria, foul smelling urine, changes to urinary stream, flank pain, fever, and or chills. In office urinalysis results reviewed with the patient today. Physical Exam - Genitourinary- Prostate examination revealed tenderness and bogginess on the left side, suggesting inflammation. Results - Diagnostic Imaging: - Recent ultrasound indicates calcifications in the prostate. Plan Initiate treatment for suspected prostatitis with Bactrim to be taken twice daily for two weeks, prednisone daily for five days to target inflammation, and Mobic daily for 30 days as an anti-inflammatory. The patient's prostate examination suggested inflammation consistent with prostatitis, guiding this treatment plan. I highlighted the importance of lifestyle modifications to avoid factors stimulating the prostate and dietary changes to reduce urinary symptoms. Further diagnostic evaluation, such as prostatic fluid analysis, may be considered if significant improvement is not observed. Informed consent was obtained post-discussion of treatment risks and benefits. Patient was informed and verbally consented to the use of an ambient scribe for clinic note documentation during this visit. Discussion Notes I discussed with the patient the probable diagnosis of chronic prostatitis based on exam findings and proposed treatment options. Benefits, risks, and potential side effects of prescribed medications such as Bactrim, prednisone, and Mobic were outlined. The possibility of further prostatic evaluation was mentioned should symptoms persist. Patient education focused on lifestyle changes and avoidance of triggering factors. I emphasized the importance of adhering to medication regimens and discussed the need for follow-up to monitor symptoms and treatment efficacy. Consent for treatment was obtained, acknowledging understanding of the proposed plan. [facility] Medical History Frequency of micturition Obesity (BMI 30-39.9) ADHD Insomnia Asthma Surgical History No pertinent past surgical history Family History Father No problems noted. Mother No problems noted. Brother In good health Sister In good health Social History Housing: Other Alcohol intake: never Patient Tobacco Use Status: Never used Tobacco e-Cigarette/Vaping Use: Never Used Second Hand Smoke Exposure: No service: No Current occupational status: unemployed Cognitive needs: No Hearing needs: No Vision needs: Yes Review of Systems Const All systems reviewed & are unremarkable except as noted in HPI and below Reports as per HPI Eyes Reports no additional complaints ENT Reports no additional complaints Card Reports no additional complaints Resp Reports as per HPI GI Reports no additional complaints Reports as per HPI Musc Reports no additional complaints Neuro Reports as per HPI Endo Reports no additional complaints Physical Exam Const General: cooperative, healthy appearing, comfortable, no acute distress, well developed, alert and awake Orientation/consciousness: patient oriented x3 Limitations: no limitations HEENT Head: Yes normal to inspection, Yes normocephalic and Yes atraumatic Ears: hearing grossly normal bilaterally Eyes General: appearance normal, both eyes and all related structures Neck Neck: Yes normal visual inspection and Yes trachea midline Chest Chest palpation & inspection: normal inspection of the chest Resp Effort & Inspection: normal respiratory effort and able to speak in complete sentences Cardio Rate: regular rate GI Inspection: Yes normal to inspection General: Yes no CVA tenderness Back/Spine/Pelvis Back: no CVA tenderness Skin General skin exam: no rashes or lesions noted Neuro General: patient oriented x3 Extrem General: Yes normal to inspection Psych Appearance: grossly normal and well kempt Mental Status: mental status grossly normal Speech and movement: Normal speech and movement present and Clear speech present Affect: normal affect Attitude: cooperative Thought process: Normal thought process present Thought content: Normal thought content present Insight: Fair insight present (Psych) Judgement: Fair judgement present (Psych) Office Procedures Post Void Residual Post Residual Void Post Void Residual (PVR): 66 [id number] Void Residual by ultrasound Results AMB Urinalysis, Automated UA Leukoctes 0 Sue/uL Last Edit by [facility] on 06/05/24 10:11 UA Nitrite Last Edit by [facility] on 06/05/24 10:11 UA Urobilinogen 0.2 mg/dL Last Edit by [facility] on 06/05/24 10:11 UA Protein 15 mg/dL Last Edit by [facility] on 06/05/24 10:11 UA pH 7.0 Last Edit by [facility] on 06/05/24 10:11 UA Blood 0 Osorio/uL Last Edit by [facility] on 06/05/24 10:11 UA Specific Aptos 1.015 Last Edit by [facility] on 06/05/24 10:11 UA Ketone Last Edit by [facility] on 06/05/24 10:11 UA Bilirubin 0 mg/dL Last Edit by [facility] on 06/05/24 10:11 UA Glucose 0 mg/dL Last Edit by [facility] on 06/05/24 10:11 Results Reviewed Results Reviewed: Laboratory Last Values Urine pH (Auto) 7.0 06/05/24 10:10 Specific Aptos (Auto) 1.015 06/05/24 10:10 Urine Protein (Auto) 15 mg/dL 06/05/24 10:10 Glucose (UA)(Auto) 0 mg/dL 06/05/24 10:10 Urine Blood (Auto) 0 Osorio/uL 06/05/24 10:10 Urine Bilirubin (Auto) 0 mg/dL 06/05/24 10:10 Urine Urobilinogen (Auto) 0.2 mg/dL 06/05/24 10:10 Leukocyte Esterase (Auto) 0 Sue/uL 06/05/24 10:10 Ordering Physician: Lynn Obregon Date of Service: 05/29/24 Procedure(s): US retroperitoneal comp Accession Number(s): [id number] cc: Lynn Obregon; Macey Almonte MD~ EXAMINATION: US RETROPERITONEUM HISTORY: N39.43 - Post-void dribbling TECHNIQUE: Real-time grayscale ultrasound imaging of the kidneys was performed and images were reviewed. COMPARISON: Comparison is made with the prior ultrasound examination the urinary bladder dated 07/03/[address] urogram dated 10/12/2022. FINDINGS: Right kidney: The right kidney measures 11.1 x 4.4 x 5.9 cm. Renal parenchymal echotexture and thickness are normal. There are no masses. There is no hydronephrosis or renal calculi. Left Kidney: The left kidney measures 11.4 x 6.5 x 5.1 cm. Renal parenchymal echotexture and thickness are normal. There are no masses. There is no hydronephrosis or renal calculi. The urinary bladder is unremarkable. Bilateral ureteral jets are identified. Before voiding, the urinary bladder measured 8.6 x 8.0 x 5.6 cm, for an estimated volume of 202 mL. After voiding, the urinary bladder measured 5.3 x 4.2 x 2.4 cm, for an estimated volume of 28 mL. The prostate is normal in size but demonstrates prominent calcifications. US/US retroperitoneal comp IMPRESSION: 1. The kidneys are unremarkable. 2. The urinary bladder is unremarkable. Post void bladder residual of 28 mL. 3. Prominent prostate calcifications. Assessment & Plan Assessment & Plan (1) Lower urinary tract symptoms: Code(s): R39.9 - Unspecified symptoms and signs involving the genitourinary system Category: Medical (2) Prostatitis: Code(s): N41.9 - Inflammatory disease of prostate, unspecified Category: Medical (3) Frequency of micturition: Code(s): R35.0 - Frequency of micturition Category: Medical (4) Urinary urgency: Code(s): R39.15 - Urgency of urination Category: Medical Plan In office urinalysis results reviewed with the patient today; as noted above. PVR 66 mL We discussed at length potential causes of lower urinary tract symptoms patient was experiencing as well as further treatment options and risks and benefits of these treatment options. Recent retroperitoneal ultrasound results were reviewed with the patient and his mom today; as noted above. We discussed prostatitis as well as chronic prostatitis. We discussed bladder triggers/irritants. Start prednisone, Bactrim, and meloxicam as prescribed. Follow-up in 1-3 months with PVR; or sooner with any issues, concerns, and or questions. Orders: Orders AMB Urinalysis Automated Today Z13.9 - Encounter for screening, unspecified AMB Post Void Residual by ultrasound Today N39.43 - Post-void dribbling Medications: New prednisone 20 mg PO DAILY 5 days 5 tabs 0RF N20.0 - Calculus of kidney meloxicam 15 mg PO DAILY 30 days 30 tabs 0RF R10.31 - Right lower quadrant pain, R10.32 - Left lower quadrant pain sulfamethoxazole-trimethoprim 800-160 mg (Bactrim DS) 1 tab PO BID 14 days 28 tabs 0RF N39.0 - Urinary tract infection, site not specified Coding Level of Care Code Est Pt Level 4 (95314) Diagnoses Lower urinary tract symptoms R39.9 Prostatitis N41.9 Frequency of micturition R35.0 Urinary urgency R39.15 CPT Codes Post Residual Void - PVR CPT Code: 78804-Rfzy Void Residual by ultrasound ([id number])
== END 2024-06-05 10:50 | disposition home or self-care (01) ==
PROVIDERS: PCP Internal Medicine; Visit Provider Nurse Practitioner Family
DX: R39.9 Unspecified symptoms and signs involving the genitourinary system (principal); N41.9 Inflammatory disease of prostate, unspecified; R35.0 Frequency of micturition; R39.15 Urgency of urination; Z13.9 Encounter for screening, unspecified
CPT/HCPCS: 99214

== ENCOUNTER → 2024-06-05 09:49 | Outpatient (BNVA) | payer OTHER, SELFPAY | PROVIDERS: PCP Internal Medicine; Visit Provider Nurse Practitioner Family | DX: R39.9 Unspecified symptoms and signs involving the genitourinary system (principal); R35.0 Frequency of micturition; R39.15 Urgency of urination; N41.9 Inflammatory disease of prostate, unspecified | CPT/HCPCS: 51798; 81003; 99212 ==

== ENCOUNTER 2024-07-12 15:09 | Outpatient (AMB) | payer OTHER, SELFPAY ==
--- NOTE | 2024-07-12 15:14 | A.OFFVIS_ITS ---
Intake Visit Reasons: microgen/LILIANA Intake Note: Patient presents today for bladder pain, frequency, and incontinence Urology Medications: none Blood Thinner: none PVR: 0ml's Swimming Pool Maintenance Required: No Accompanied by: Self / Same As Patient Allergies No Known Allergies Allergy (Verified 07/12/24 15:27) Medication List - Last Reconciled 07/12/24 by KRISHNA Cottrell trazodone 50 mg PO BEDTIME PRN HPI Comments Details: Dylon is a very pleasant 24-year-old male patient of Dr. Almonte who was accompanied by his step mom Taylor at today's office visit He has a past medical history of ADHD, asthma, and insomnia. He presents to the office today for follow-up of his ongoing lower urinary tract symptoms. In discussion with the patient today he reports having completed course of treatment for prostatitis. He reports while on medications for prostatitis he had been doing well and lower urinary tract symptoms he had been experiencing significantly improved however shortly after completion of Bactrim, prednisone, and Mobic he started experiencing lower urinary tract symptoms again. We discussed potential for chronic prostatitis. Patient has previously underwent an office cystoscopy 03/[address] Coy Benton that noted Cystoscopy findings: prostatic urethra non obstructive, bulbous urethra WNL, no suspicious bladder lesions visualized. Previous workup has also included a retroperitoneal ultrasound 06/15 noting bilateral kidneys with no calculi, lesions, and or hydronephrosis. The urinary bladder is unremarkable. Postvoid bladder volume was approximately 30 mL. The prostate is normal in size but demonstrates prominent calcifications. Patient with a longstanding history of STD workup that has all been within normal limits. He reports he is not currently sexually active however describes an episode 8-10 years ago when he engaged with multi partner anal intercourse. He is currently undergoing psychological therapy for this ongoing issue he has been experiencing. We discussed at length potential causes of lower urinary tract symptoms patient is experiencing. LILIANA/prostate massage was performed in office will send for microgen for further assessment evaluation. We discussed pelvic floor therapy. He otherwise denies hematuria, dysuria, foul smelling urine, changes to urinary stream, flank pain, fever, and or chills. In office urinalysis results reviewed with the patient today. [facility] Medical History Frequency of micturition Obesity (BMI 30-39.9) ADHD Insomnia Asthma Surgical History No pertinent past surgical history Family History Father No problems noted. Mother No problems noted. Brother In good health Sister In good health Social History Housing: Other Alcohol intake: never Patient Tobacco Use Status: Never used Tobacco e-Cigarette/Vaping Use: Never Used Second Hand Smoke Exposure: No service: No Current occupational status: unemployed Cognitive needs: No Hearing needs: No Vision needs: Yes Review of Systems Const All systems reviewed & are unremarkable except as noted in HPI and below Reports as per HPI Eyes Reports no additional complaints ENT Reports no additional complaints Card Reports no additional complaints Resp Reports as per HPI GI Reports no additional complaints Reports as per HPI Musc Reports no additional complaints Neuro Reports as per HPI Endo Reports no additional complaints Physical Exam Const General: cooperative, healthy appearing, comfortable, no acute distress, well developed, alert and awake Orientation/consciousness: patient oriented x3 Limitations: no limitations HEENT Head: Yes normal to inspection, Yes normocephalic and Yes atraumatic Ears: hearing grossly normal bilaterally Eyes General: appearance normal, both eyes and all related structures Neck Neck: Yes normal visual inspection and Yes trachea midline Chest Chest palpation & inspection: normal inspection of the chest Resp Effort & Inspection: normal respiratory effort and able to speak in complete sentences Cardio Rate: regular rate GI Inspection: Yes normal to inspection General: Yes no CVA tenderness Back/Spine/Pelvis Back: no CVA tenderness Skin General skin exam: no rashes or lesions noted Neuro General: patient oriented x3 Extrem General: Yes normal to inspection Psych Appearance: grossly normal and well kempt Mental Status: mental status grossly normal Speech and movement: Normal speech and movement present and Clear speech present Affect: normal affect Attitude: cooperative Thought process: Normal thought process present Thought content: Normal thought content present Insight: Fair insight present (Psych) Judgement: Fair judgement present (Psych) Office Procedures Post Void Residual Post Residual Void Post Void Residual (PVR): 0 07104-Jhhn Void Residual by ultrasound Results AMB Urinalysis, Automated UA Leukoctes 0 Sue/uL Last Edit by [employer] on 07/12/24 15:34 UA Nitrite Last Edit by [employer] on 07/12/24 15:34 UA Urobilinogen 0.2 mg/dL Last Edit by [employer] on 07/12/24 15:34 UA Protein 0 mg/dL Last Edit by [employer] on 07/12/24 15:34 UA pH 7.0 Last Edit by [employer] on 07/12/24 15:34 UA Blood 0 Osorio/uL Last Edit by [employer] on 07/12/24 15:34 UA Specific [place] 1.005 Last Edit by [employer] on 07/12/24 15:34 UA Ketone Last Edit by [employer] on 07/12/24 15:34 UA Bilirubin 0 mg/dL Last Edit by [employer] on 07/12/24 15:34 UA Glucose 0 mg/dL Last Edit by [employer] on 07/12/24 15:34 Results Reviewed Results Reviewed: Laboratory Last Values Urine pH (Auto) 7.0 07/12/24 15:20 Specific [place] (Auto) 1.005 07/12/24 15:20 Urine Protein (Auto) 0 mg/dL 07/12/24 15:20 Glucose (UA)(Auto) 0 mg/dL 07/12/24 15:20 Urine Blood (Auto) 0 Osorio/uL 07/12/24 15:20 Urine Bilirubin (Auto) 0 mg/dL 07/12/24 15:20 Urine Urobilinogen (Auto) 0.2 mg/dL 07/12/24 15:20 Leukocyte Esterase (Auto) 0 Sue/uL 07/12/24 15:20 Assessment & Plan Assessment & Plan (1) Urinary urgency: Code(s): R39.15 - Urgency of urination Category: Medical (2) Prostatitis: Code(s): N41.9 - Inflammatory disease of prostate, unspecified Category: Medical (3) Lower urinary tract symptoms: Code(s): R39.9 - Unspecified symptoms and signs involving the genitourinary system Category: Medical Plan In office urinalysis results reviewed with the patient today; as noted above. PVR 0 mL. We discussed pelvic floor therapy. We discussed potential causes of lower urinary tract symptoms patient is experiencing as well as further treatment options and risks and benefits of these treatment options. We discussed prostatitis versus chronic prostatitis. Prostate massage was performed in office will send for microgen testing for further assessment evaluation; will await results for potential treatment We discussed bladder triggers/irritants. Follow-up in 1-2 months with PVR; or sooner with any issues, concerns, and or questions. Orders: Orders AMB Urinalysis Automated Today Z13.9 - Encounter for screening, unspecified AMB Post Void Residual by ultrasound Today R39.15 - Urgency of urination Patient Instructions: The patient had an opportunity to ask questions regarding the treatment plan. All questions were answered. Physical exam, labs, and imaging were discussed and reviewed in detail. As well as risks, benefits, and discussion of treatment choices. No major barriers to understanding were identified. The patient expressed understanding and agreement with the above treatment plan. The patient was made aware they should contact our office by phone for worsening of their current condition, the appearance of new symptoms, or with any questions or concerns. Compliance is encouraged with any medications and follow up testing that is ordered. It is a privilege to be allowed the opportunity to participate in? your urological care.? Again, if you have any questions or concerns If you have any questions or concerns please do not hesitate to contact me. The office is [phone]. This note is constructed using voice recognition software. While every effort has been made to ensure accuracy sewage plant operator errors may have been included. Yours sincerely, KRISHNA Cottrell Coding Level of Care Code Est Pt Level 3 (78020) Diagnoses Urinary urgency R39.15 Prostatitis N41.9 Lower urinary tract symptoms R39.9 CPT Codes Post Residual Void - PVR CPT Code: 94171-Pxdr Void Residual by ultrasound ([id number])
== END 2024-07-12 15:52 | disposition home or self-care (01) ==
LOC: HO.HUSH 15:10
PROVIDERS: PCP Internal Medicine; Visit Provider Nurse Practitioner Family
DX: R39.15 Urgency of urination (principal); N41.9 Inflammatory disease of prostate, unspecified; R39.9 Unspecified symptoms and signs involving the genitourinary system; Z13.9 Encounter for screening, unspecified
CPT/HCPCS: 99213

== ENCOUNTER → 2024-07-12 15:09 | Outpatient (BNVA) | payer OTHER, SELFPAY | PROVIDERS: PCP Internal Medicine; Visit Provider Nurse Practitioner Family | DX: K64.9 Unspecified hemorrhoids (principal); K59.00 Constipation, unspecified; K21.9 Gastro-esophageal reflux disease without esophagitis; F90.9 Attention-deficit hyperactivity disorder, unspecified type; J45.909 Unspecified asthma, uncomplicated; R14.0 Abdominal distension (gaseous); N41.9 Inflammatory disease of prostate, unspecified; R39.15 Urgency of urination | CPT/HCPCS: 51798; 81003; 99212 ==

== ENCOUNTER → 2024-07-12 16:14 | Outpatient (AMB) | payer OTHER, SELFPAY ==
[2024-07-12 16:16] VITALS: BP 118/78; PULSE 77; O2SAT 98; BMI 22.8
--- NOTE | 2024-07-12 16:16 | MHC.PC.OV ---
Vital Signs 07/12/24 16:16 Height 5 ft 9 in Weight 154 lb 6 oz BMI 22.8 BP 118/78 Blood Pressure Location Lt brachial Position Sitting Pulse 77 Pulse Source Pulse Oximeter Pulse Oximetry (%) 98 Oxygen Delivery Method Room Air Intake Visit Reasons: Rectal Bleeding Human Services Worker Required: No Accompanied by: Self / Same As Patient Allergies No Known Allergies Allergy (Verified 07/12/24 15:27) Medication List - Last Reconciled 07/12/24 by Macey Almonte MD hydrocortisone 2.5% (Proctosol HC) 1 appl ND BID-QID PRN sennosides-docusate sodium 8.6-50 mg (Senna Plus) 2 tab-caps (2 x 8.6-50 mg) PO BEDTIME trazodone 50 mg PO BEDTIME PRN Tobacco use date assessed: 07/12/24 Dental Screening Dental Screen Date: 07/12/24 Did you have a dental visit in the last 12 months?: No Did you have a dental problem in the last 6 months where you did not have access to dental care?: No Was dental information given to patient?: No HPI Rectal Bleeding HPI Details prostatitis treatment under urology. presently frequency is better. hemorrhoids problems, will be seeing gastro soon though. has bloating sensation - gas. [facility] Medical History Frequency of micturition Obesity (BMI 30-39.9) ADHD Insomnia Asthma Surgical History No pertinent past surgical history Family History Father No problems noted. Mother No problems noted. Brother In good health Sister In good health Social History Housing: Other Alcohol intake: never Patient Tobacco Use Status: Never used Tobacco e-Cigarette/Vaping Use: Never Used Second Hand Smoke Exposure: No service: No Current occupational status: unemployed Cognitive needs: No Hearing needs: No Vision needs: Yes Questionnaire PHQ-9 Over the last 2 weeks, how often have you been bothered by any of the following problems? 1. Little interest or pleasure in doing things: not at all 2. Feeling down, depressed, or hopeless: not at all 3. Trouble falling or staying asleep, or sleeping too much: not at all 4. Feeling tired or having little energy: not at all 5. Poor appetite or overeating: not at all 6. Feeling bad about yourself - or that you are a failure or have let yourself or your family down: not at all 7. Trouble concentrating on things, such as reading the newspaper or watching television: not at all 8. Moving or speaking so slowly that other people could have noticed. Or the opposite - being so fidgety or restless that you have been moving around a lot more than usual: not at all 9. Thoughts that you would be better off or of hurting yourself in some way: not at all Total score: 0 Source: Developed by Drs. Sunny Abbott, Keshia Arango, Ottoniel Duran and colleagues, with an educational jasmina from [employer]. Thrive Questionnaire Date Thrive assessed: 07/12/24 I am a: Patient What is your living situation today?: I choose not to answer this question Within the past 12 months, did the food you bought not last and you didn't have the money to get more?: I choose not to answer this question Within the past 12 months, did you worry whether your food would run out before you got money to buy more?: I choose not to answer this question Do you have trouble paying for medicines?: I choose not to answer this question Do you have trouble getting transportation to medical appointments?: No Do you have trouble paying your heating and electricity bill?: I choose not to answer this question Do you have trouble taking care of your child, family member or friend?: I choose not to answer this question Do you have trouble with day-to-day activities such as bathing, preparing meals, shopping, managing finances, etc.?: No Are you currently unemployed and looking for a job?: I choose not to answer this question Are you interested in more education?: I choose not to answer this question Please select the resources that you would like help with: None Currently or been in a relationship where the following occur: I choose not to answer THRIVE Score: 0 AUDIT C Alcohol Use Questionnaire (AUDIT-C) 1. How often do you have a drink containing alcohol?: Never 3. How often do you have six or more drinks on one occasion?: Never Total Score: 0 TONIO-7 AMB Questionnaire TONIO-7 Date TONIO - 7 assessed: 07/12/24 Feeling nervous, anxious, or on edge: 0 = Not at all Not being able to stop or control worryin = Not at all Worrying too much about different things: 0 = Not at all Trouble relaxin = Not at all Being so restless that it is hard to sit still: 0 = Not at all Becoming easily annoyed or irritable: 0 = Not at all Feeling afraid as if something awful might happen: 0 = Not at all Total TONIO-7 score (0-4 normal; 5-9 mild; 10-14 moderate; 15-21 severe): 0 Source: Developed by Drs. Sunny Abbott, Keshia Arango, Ottoniel Duran and colleagues, with an educational jasmina from [employer]. Physical exam (Primary Care) Vital Signs: Last Vital Signs Pulse 77 07/12/24 16:16 BP 118/78 07/12/24 16:16 Pulse Ox 98 07/12/24 16:16 Oxygen Delivery Method Room Air 07/12/24 16:16 BMI result Body Mass Index 22.8 Tobacco/Smoking Status: Tobacco use Status Tobacco use date assessed 07/12/24 07/12/24 16:21 Patient Tobacco Use Status Never used Tobacco 07/12/24 16:21 e-Cigarette/Vaping Use Never Used 07/12/24 16:21 PHQ-9: PHQ-9 Score PHQ-9: Total score 0 07/12/24 16:32 Thrive Assessment: Date of Thrive Assessment Date Thrive assessed 07/12/24 07/12/24 16:21 Currently or been in a relationship where the following occur: I choose not to answer Const General: alert; No acute distress Eyes Conjunctivae: conjunctivae normal Resp Auscultation: clear to auscultation bilaterally Cardio Rate: regular rate Rhythm: regular rhythm GI Inspection: Yes normal to inspection Extrem General: Yes normal to inspection and No edema Results AMB Urinalysis, Automated UA Leukoctes 0 Sue/uL Last Edit by Carmela Walls on 07/12/24 15:34 UA Nitrite Last Edit by Carmela Walls on 07/12/24 15:34 UA Urobilinogen 0.2 mg/dL Last Edit by Lumi Shanghaie Kavita on 07/12/24 15:34 UA Protein 0 mg/dL Last Edit by Carmela Walls on 07/12/24 15:34 UA pH 7.0 Last Edit by Sergioe Kavita on 07/12/24 15:34 UA Blood 0 Osorio/uL Last Edit by Carmela Walls on 07/12/24 15:34 UA Specific [place] 1.005 Last Edit by Carmela Walls on 07/12/24 15:34 UA Ketone Last Edit by [email or web address] on 07/12/24 15:34 UA Bilirubin 0 mg/dL Last Edit by [employer] on 07/12/24 15:34 UA Glucose 0 mg/dL Last Edit by [employer] on 07/12/24 15:34 Coding Level of Care Code Est Pt Level 4 (67266) Diagnoses ADHD F90.9 Gastroesophageal reflux disease without esophagitis K21.9 Esophagitis presence: without esophagitis Asthma J45.909 Prostatitis N41.9 Abdominal bloating R14.0 Constipation K59.00 Hemorrhoids K64.9 Assessment & Plan Assessment & Plan (1) ADHD: Code(s): F90.9 - Attention-deficit hyperactivity disorder, unspecified type Category: Medical Plan: Stable (2) GERD (gastroesophageal reflux disease): Comment: GI series 06/2020 Code(s): K21.9 - Gastro-esophageal reflux disease without esophagitis Category: Medical Qualifiers: Esophagitis presence: without esophagitis Qualified Code(s): K21.9 - Gastro-esophageal reflux disease without esophagitis Plan: Avoid the foods that causes that usually spicy foods, tomato products, juices, coffee, soda and foods that your sensitive to. After eating do not lie down, allow 3-4 hours before in lie down. And keep the head of bed above 30 degrees to avoid the acid from going up. (3) Asthma: Code(s): J45.909 - Unspecified asthma, uncomplicated Category: Medical Plan: Stable (4) Prostatitis: Code(s): N41.9 - Inflammatory disease of prostate, unspecified Category: Medical Plan: Patient follows up with urology (5) Abdominal bloating: Code(s): R14.0 - Abdominal distension (gaseous) Category: Medical (6) Constipation: Code(s): K59.00 - Constipation, unspecified Category: Medical (7) Hemorrhoids: Code(s): K64.9 - Unspecified hemorrhoids Category: Medical Plan History of Present Illness The patient is a 24-year-old male presenting with bloating. He reports experiencing significant abdominal bloating and pressure, correlating with notable dietary habits, particularly regarding dairy intake. There's a prior history of a 9-pound weight gain and chronic prostatitis, largely resolved with specified therapeutic measures. Accompanying these symptoms are constipation and hemorrhoids, which have been recurrent and are adversely impacted by dietary habits and physical straining during bowel movements. The existing anxiety disorder and asthma, alongside ADHD, contribute to his complex medical history. Previous laboratory assessments revealed leukopenia, but otherwise, normal systemic function. Health Maintenance - Discussed dietary modifications including reducing dairy and increasing fiber intake to manage constipation. - Encouraged regular physical activity as it aids in maintaining bowel regularity. - Suggested the use of lactase supplements as potential relief from dietary lactose intolerance. Social History - Exercise: The patient reports being physically active and is always moving. - Nutrition: High intake of dairy products, meats, and rice; frequent consumption of cheese, pistachios, and yogurt. - Dietary restrictions: Ceased consumption of carbonated drinks. Review of Systems - Gastrointestinal: Reports bloating, constipation, and hemorrhoids. - Genitourinary: Reports frequency, denies night-time excessive urination. - Neurological/Psychiatric: Denies any additional psychiatric or neurologic symptoms beyond what is reported with anxiety and ADHD. - Respiratory: Denies current respiratory symptoms. Physical Exam - Gastrointestinal- External hemorrhoids observed; small size noted. - General- General appearance of the patient not specifically mentioned beyond presence. Results - Lab Results: Previous blood work on May 29 showed leukopenia with otherwise normal complete blood count, electrolytes, renal function, blood sugar, and liver function tests. LDL cholesterol was at 76. Plan The patient will begin dietary modification to decrease dairy intake and incorporate lactase supplementation to address potential lactose intolerance contributing to his gastrointestinal symptoms. Increase fiber intake to address constipation and reduce the risk and exacerbation of hemorrhoids. Initiated senna to facilitate bowel movements and minimize strain. To manage hemorrhoid-associated inflammation and discomfort, I prescribed a topical hemorrhoid ointment. Follow up with gastroenterology is scheduled to further evaluate the gastrointestinal symptoms, including potential endoscopic evaluation. The patient was instructed on preventive strategies and lifestyle modifications to manage his present conditions effectively and reduce recurrence risk. Patient was informed and verbally consented to the use of an ambient scribe for clinic note documentation during this visit. Discussion Notes During the consultation, I provided the patient with detailed information regarding his bloating and constipation, emphasizing the role of dietary and lifestyle modifications. We explored the benefits of reducing dairy intake and potentially using lactase supplements. I advised the patient on the importance of fiber intake and physical activity in managing gastrointestinal health. I explained the necessity of prescription senna to aid bowel movements and the use of hemorrhoidal ointment for symptomatic relief. Additionally, I discussed the continued monitoring and follow-up required for his prostatitis and outlined the potential need for pelvic floor therapy if symptoms persist. We agreed on follow-up plans with gastroenterology for a comprehensive assessment in September, highlighting the importance of lifestyle adjustments in managing his symptoms. Patient Instructions - Reduce dairy intake and consider using lactase supplements. - Increase intake of fiber-rich foods such as green leafy vegetables. - Take senna as prescribed to assist bowel movements. - Use the prescribed hemorrhoid cream to reduce inflammation and discomfort. - Avoid straining during bowel movements. - Stay hydrated by drinking 6-8 glasses of water daily. - Engage in regular physical activity. - Follow up with gastroenterology as scheduled in September. - Notify me if symptoms worsen or fail to improve with initiated interventions. Medications: New hydrocortisone 2.5% (Proctosol HC) 1 appl ND BID-QID PRN 30 grams 9RF hemorrhoids K64.9 - Unspecified hemorrhoids sennosides-docusate sodium 8.6-50 mg (Senna Plus) 2 tab-caps (2 x 8.6-50 mg) PO BEDTIME 60 caps 3RF K59.00 - Constipation, unspecified
== END ==
LOC: HO.HMCH 16:14
PROVIDERS: PCP Internal Medicine; Visit Provider Internal Medicine
DX: F90.9 Attention-deficit hyperactivity disorder, unspecified type (principal); K21.9 Gastro-esophageal reflux disease without esophagitis; J45.909 Unspecified asthma, uncomplicated; N41.9 Inflammatory disease of prostate, unspecified; R14.0 Abdominal distension (gaseous); K59.00 Constipation, unspecified; K64.9 Unspecified hemorrhoids

== ENCOUNTER 2024-08-20 09:42 | Outpatient (AMB) | payer OTHER, SELFPAY ==
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
== END 2024-08-20 10:31 | disposition home or self-care (01) ==
LOC: HO.HUSH 09:42
PROVIDERS: PCP Internal Medicine; Visit Provider Nurse Practitioner Family
DX: R35.0 Frequency of micturition (principal); N39.43 Post-void dribbling; R39.9 Unspecified symptoms and signs involving the genitourinary system; R39.15 Urgency of urination; N41.9 Inflammatory disease of prostate, unspecified; Z13.9 Encounter for screening, unspecified
CPT/HCPCS: 99213; G2211

== ENCOUNTER → 2024-08-20 09:42 | Outpatient (BNVA) | payer OTHER, SELFPAY | PROVIDERS: PCP Internal Medicine; Visit Provider Nurse Practitioner Family | DX: R35.0 Frequency of micturition (principal); N39.43 Post-void dribbling; R39.9 Unspecified symptoms and signs involving the genitourinary system; R39.15 Urgency of urination; N41.9 Inflammatory disease of prostate, unspecified | CPT/HCPCS: 51798; 81003; 99212 ==

== ENCOUNTER 2024-08-28 11:31 | Outpatient (AMB) | payer OTHER, SELFPAY ==
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
== END 2024-08-28 12:37 | disposition home or self-care (01) ==
LOC: HO.HUSH 11:33
PROVIDERS: PCP Internal Medicine; Visit Provider Urology
DX: N41.9 Inflammatory disease of prostate, unspecified (principal); N41.1 Chronic prostatitis; G89.4 Chronic pain syndrome; Z13.9 Encounter for screening, unspecified
CPT/HCPCS: 99213; G2211

== ENCOUNTER → 2024-08-28 11:31 | Outpatient (BNVA) | payer OTHER, SELFPAY | PROVIDERS: PCP Internal Medicine; Visit Provider Urology | DX: N41.9 Inflammatory disease of prostate, unspecified (principal); N41.1 Chronic prostatitis; G89.4 Chronic pain syndrome | CPT/HCPCS: 81003; 99212 ==

== ENCOUNTER 2024-09-19 14:29 | Outpatient (AMB) | payer OTHER, SELFPAY ==
[2024-09-19 14:31] VITALS: BP 104/66; PULSE 85; RESP 18; TEMP 36.4; O2SAT 98; BMI 22.0
--- NOTE | 2024-09-19 14:31 | MHC.PC.OV ---
Vital Signs 09/19/24 14:31 Height 5 ft 9 in Weight 149 lb BMI 22.0 BP 104/66 Blood Pressure Location Lt brachial Position Sitting Respiration 18 Pulse 85 Pulse Source Pulse Oximeter Temp 97.5 F Temp Source Temporal Artery Scan Pulse Oximetry (%) 98 Oxygen Delivery Method Room Air Intake Visit Reasons: weight loss Accompanied by: Father Allergies No Known Allergies Allergy (Verified 09/19/24 14:35) Medication List - Last Reconciled 09/19/24 by Macey Almonte MD hydroxyzine HCl 25 mg PO BEDTIME sulfamethoxazole-trimethoprim 800-160 mg 1 tab PO BID trazodone 50 mg PO BEDTIME PRN vibegron (Gemtesa) 75 mg PO DAILY Tobacco use date assessed: 09/19/24 Dental Screening Dental Screen Date: 09/19/24 Did you have a dental visit in the last 12 months?: No Did you have a dental problem in the last 6 months where you did not have access to dental care?: No Was dental information given to patient?: Patient has dentist [facility] Medical History Frequency of micturition Obesity (BMI 30-39.9) ADHD Insomnia Asthma Surgical History No pertinent past surgical history Family History Father No problems noted. Mother No problems noted. Brother In good health Sister In good health Social History Housing: Other Alcohol intake: never Patient Tobacco Use Status: Never used Tobacco e-Cigarette/Vaping Use: Never Used Second Hand Smoke Exposure: No service: No Current occupational status: unemployed Cognitive needs: No Hearing needs: No Vision needs: Yes Questionnaire PHQ-9 Over the last 2 weeks, how often have you been bothered by any of the following problems? 1. Little interest or pleasure in doing things: not at all 2. Feeling down, depressed, or hopeless: not at all 3. Trouble falling or staying asleep, or sleeping too much: not at all 4. Feeling tired or having little energy: not at all 5. Poor appetite or overeating: not at all 6. Feeling bad about yourself - or that you are a failure or have let yourself or your family down: not at all 7. Trouble concentrating on things, such as reading the newspaper or watching television: not at all 8. Moving or speaking so slowly that other people could have noticed. Or the opposite - being so fidgety or restless that you have been moving around a lot more than usual: not at all 9. Thoughts that you would be better off or of hurting yourself in some way: not at all Total score: 0 Source: Developed by Drs. Sunny Abbott, Keshia Arango, Ottoniel Duran and colleagues, with an educational jasmina from [employer]. Thrive Questionnaire Date Thrive assessed: 07/12/24 I am a: Patient What is your living situation today?: I choose not to answer this question Within the past 12 months, did the food you bought not last and you didn't have the money to get more?: I choose not to answer this question Within the past 12 months, did you worry whether your food would run out before you got money to buy more?: I choose not to answer this question Do you have trouble paying for medicines?: I choose not to answer this question Do you have trouble getting transportation to medical appointments?: No Do you have trouble paying your heating and electricity bill?: I choose not to answer this question Do you have trouble taking care of your child, family member or friend?: I choose not to answer this question Do you have trouble with day-to-day activities such as bathing, preparing meals, shopping, managing finances, etc.?: No Are you currently unemployed and looking for a job?: I choose not to answer this question Are you interested in more education?: I choose not to answer this question Please select the resources that you would like help with: None Currently or been in a relationship where the following occur: I choose not to answer THRIVE Score: 0 AUDIT C Alcohol Use Questionnaire (AUDIT-C) 1. How often do you have a drink containing alcohol?: Never 3. How often do you have six or more drinks on one occasion?: Never Total Score: 0 TONIO-7 AMB Questionnaire TONIO-7 Date TONIO - 7 assessed: 07/12/24 Feeling nervous, anxious, or on edge: 0 = Not at all Not being able to stop or control worryin = Not at all Worrying too much about different things: 0 = Not at all Trouble relaxin = Not at all Being so restless that it is hard to sit still: 0 = Not at all Becoming easily annoyed or irritable: 0 = Not at all Feeling afraid as if something awful might happen: 0 = Not at all Total TONIO-7 score (0-4 normal; 5-9 mild; 10-14 moderate; 15-21 severe): 0 Source: Developed by Drs. Sunny Abbott, Keshia Arango, Ottoniel Duran and colleagues, with an educational jasmina from [employer]. Physical exam (Primary Care) Vital Signs: Last Vital Signs Temp 97.5 F 09/19/24 14:31 Pulse 85 09/19/24 14:31 Resp 18 09/19/24 14:31 BP 104/66 09/19/24 14:31 Pulse Ox 98 09/19/24 14:31 Oxygen Delivery Method Room Air 09/19/24 14:31 BMI result Body Mass Index 22.0 Tobacco/Smoking Status: Tobacco use Status Tobacco use date assessed 09/19/24 09/19/24 14:37 Patient Tobacco Use Status Never used Tobacco 09/19/24 14:37 e-Cigarette/Vaping Use Never Used 09/19/24 14:37 PHQ-9: PHQ-9 Score PHQ-9: Total score 0 09/19/24 14:56 Thrive Assessment: Date of Thrive Assessment Date Thrive assessed 07/12/24 09/19/24 14:37 Currently or been in a relationship where the following occur: I choose not to answer Const General: alert; No acute distress Eyes Conjunctivae: conjunctivae normal Resp Auscultation: clear to auscultation bilaterally Cardio Rate: regular rate Rhythm: regular rhythm GI Inspection: Yes normal to inspection Extrem General: Yes normal to inspection and No edema Immunizations Tenivac (PF) 5 Lf unit-2 Lf unit/0.5 mL intramuscular syringe Performing Provider: Macey Almonte MD [facility] Administered by: Mounika Kamara LPN on 09/19/24 15:26 Dose Route Admin Location Dispensed Lot Number Expiration Date [facility] Junior Bookkeeper 0.5 mL IM Left Deltoid 0.5 mL [id number] 06/20/26 47060-512-57 [employer] Total Dispensed Waste 0.5 mL 0 % VIS Given Date VIS Provided VIS Publication Date 09/19/24 Single Vaccine 20 Eligibility Eligibility Date Funding Source Not VFC Eligible 09/19/24 Private Coding Level of Care Code Est Pt Level 4 (54850) Diagnoses ADHD F90.9 Generalized anxiety disorder F41.1 Gastroesophageal reflux disease without esophagitis K21.9 Esophagitis presence: without esophagitis Prostatitis N41.9 Assessment & Plan Assessment & Plan (1) ADHD: Code(s): F90.9 - Attention-deficit hyperactivity disorder, unspecified type Category: Medical Plan: Stable (2) Generalized anxiety disorder: Code(s): F41.1 - Generalized anxiety disorder Category: Medical Plan: Patient has been placed on trazodone and hydroxyzine (3) GERD (gastroesophageal reflux disease): Comment: GI series 06/2020 Code(s): K21.9 - Gastro-esophageal reflux disease without esophagitis Category: Medical Qualifiers: Esophagitis presence: without esophagitis Qualified Code(s): K21.9 - Gastro-esophageal reflux disease without esophagitis Plan: Avoid the foods that causes that usually spicy foods, tomato products, juices, coffee, soda and foods that your sensitive to. After eating do not lie down, allow 3-4 hours before in lie down. And keep the head of bed above 30 degrees to avoid the acid from going up. (4) Prostatitis: Code(s): N41.9 - Inflammatory disease of prostate, unspecified Category: Medical Plan: Patient has been prescribed antibiotic with Gemtesa Plan History of Present Illness The patient is a 24-year-old male presenting for a follow-up visit. The patient has a history of asthma, ADHD, and GERD, all of which are being managed with medication and lifestyle modifications. He experiences migraines, which are managed with medication as needed. In August, he was seen by urology for interstitial cystitis and chronic prostatitis and was prescribed Bactrim, Gemtesa, and hydroxyzine. The patient reports improvement in symptoms with the current treatment regimen. Blood work in May was normal, and he denies any palpitations or swelling. Dietary modifications have been recommended to manage GERD, and probiotics have been suggested for gastrointestinal discomfort. He agreed to receive a tetanus vaccination during this visit. Health Maintenance - Tetanus vaccination administered Social History - Diet: Patient consumes rice, chicken, and vegetables, and has limited intake of dairy and gas-forming foods. - Lifestyle: Avoids processed foods, soda, and certain fruits; uses almond milk instead of dairy. Review of Systems - Respiratory: Denies swelling - Cardiovascular: Denies palpitations Physical Exam - Respiratory: No swelling observed Results - Labs: Normal blood count, electrolytes, renal function, blood sugar, liver function, cholesterol, B12, folic acid, and thyroid levels as of May. Plan The patient will continue with the current medication regimen for asthma, ADHD, GERD, and migraines, ensuring adherence to prescribed treatments. For interstitial cystitis and chronic prostatitis, the patient will continue taking Bactrim, Gemtesa, and hydroxyzine, as these have shown effectiveness in symptom management. Dietary modifications are advised to manage GERD symptoms, and probiotics are recommended to alleviate gastrointestinal discomfort. The patient received a tetanus vaccination during this visit to ensure up-to-date preventative care. Patient was informed and verbally consented to the use of an ambient scribe for clinic note documentation during this visit. Discussion Notes During the visit, I discussed with the patient the management of his asthma, ADHD, GERD, and migraines, emphasizing the importance of medication adherence. We reviewed the treatment plan for interstitial cystitis and chronic prostatitis, noting the positive response to Bactrim, Gemtesa, and hydroxyzine. I advised dietary changes to manage GERD and suggested probiotics for gastrointestinal discomfort. The patient agreed to receive a tetanus vaccination, which was administered during the visit. Patient Instructions - Continue taking prescribed medications for asthma, ADHD, GERD, and migraines. - Follow the medication regimen for interstitial cystitis and chronic prostatitis. - Make dietary changes to manage GERD symptoms. - Try probiotics to help with gastrointestinal discomfort. - Return for follow-up as scheduled and monitor for any new symptoms. Orders: Orders Td Immunization Today Z23 - Encounter for immunization
== END 2024-09-19 15:41 | disposition home or self-care (01) ==
LOC: HO.HMCH 14:29
PROVIDERS: PCP Internal Medicine; Visit Provider Internal Medicine
DX: F90.9 Attention-deficit hyperactivity disorder, unspecified type (principal); F41.1 Generalized anxiety disorder; K21.9 Gastro-esophageal reflux disease without esophagitis; N41.9 Inflammatory disease of prostate, unspecified; Z23 Encounter for immunization

== ENCOUNTER → 2024-09-19 14:29 | Outpatient (BNVA) | payer OTHER, SELFPAY | PROVIDERS: PCP Internal Medicine; Visit Provider Internal Medicine | DX: F41.1 Generalized anxiety disorder (principal); F90.9 Attention-deficit hyperactivity disorder, unspecified type; K21.9 Gastro-esophageal reflux disease without esophagitis; N41.9 Inflammatory disease of prostate, unspecified; Z23 Encounter for immunization | CPT/HCPCS: 90471; 90714; 99212 ==